=== PATIENT | female | born 1965 | race African-American/Black ===

== ENCOUNTER 2020-06-15 11:40 | Inpatient (IN) | payer OTHER, SELFPAY ==
[2020-06-15] MEDS ORDERED: Aspirin Chewable 81 MG TAB ONE (12:09)
[2020-06-15] MEDS ORDERED: Diltiazem 125 MG/25 ML ONE (12:09)
[2020-06-15 12:15] LABS: Mean Corpuscular HGB CONC 27.5 g/dL (32.0-36.0); Mean Corpuscular Hemoglobin 17.4 pg (27.0-31.0); Mean Corpuscular Volume 63.3 fL (78.0-98.0); Mean Platelet Volume 9.8 fL (7.4-10.4); Platelet Count 266 thou/uL (130-400); RBC Distribution Width 25.6 % (11.5-14.5); White Blood Cell (WBC) Count 10.1 thou/uL (4.8-10.8)
--- NOTE | 2020-06-15 12:17 | RAD ---
Chest one view HISTORY: Edema. Dyspnea. FINDINGS: No comparison. Cardiac silhouette is magnified and enlarged. Pulmonary vasculature are unre markable. Mediastinum is midline. There is blunting of the right lateral costophrenic angle and ill-defined predominantly horizontal pa renchymal opacity at the right lung base. Left lung is well-inflated. Calcified lymph nodes at the right hilum and calcified granulomata are co nsistent with healed granulomatous disease. No evidence of pneumothorax. IMPRESSION : Right basilar atelectasis and small amount of right pleural fluid. Cause is not evident. Clinical cor relation regarding other signs and symptoms of right basilar pneumonitis is required. Cardiomegaly.
[2020-06-15 12:37] LABS: ALT (SGPT) 313 U/L (8-55); AST (SGOT) 290 U/L (5-34); Albumin 3.3 g/dL (3.5-5.0); Alkaline Phosphatase 159 U/L (40-110); Anion Gap 18 mmol/L (10-20); BUN (Urea Nitrogen) 45 mg/dL (9.8-20.1); Bilirubin, Total 1.8 mg/dL (0.2-1.2); Calc. Creatinine Clearance 0 mL/min (70-130); Calcium 8.1 mg/dL (7.8-10.44); Carbon Dioxide 22 mmol/L (22-29); Chloride 104 mmol/L (98-107); Estimated GFR-MDRD 52; Glucose 157 mg/dL (70-105); Potassium 3.4 mmol/L (3.5-5.1); Protein, Total 6.3 g/dL (6.0-8.3); Sodium 141 mmol/L (136-145)
[2020-06-15 12:41] LABS: Anisocytosis MODERATE=16-30 cells (100X) (0-5/hpf); Band 3 % (5-11); Elliptocytes SLIGHT = 2-5 cells (100X) (0-1/hpf); Hypochromia MARKED = >30 cells (100X) (0-5/hpf); Lymphocytes 7 % (21-51); MDiff Complete? YES; Microcytosis MODERATE=15-30 cells (100X) (0-5/hpf); Monocytes 2 % (0-10); Neutrophil 88 % (42-75); Nucleated RBC 4 % (0); Ovalocytes SLIGHT = 2-5 cells (100X) (0-1/hpf); Platelet Morphology Comment Appears Adequate; Polychromasia SLIGHT = 2-3 cells (100X) (0-2/hpf); Reflex for Review?? YES; Schistocytes SLIGHT = 2-5 cells (100X) (0-1/hpf); Target Cells SLIGHT = 2-5 cells (100X) (0-1/hpf)
[2020-06-15] MEDS ORDERED: Enoxaparin Sodium 80 MG/0.8 ML SYRINGE ONE (12:43)
[2020-06-15 12:56] LABS: CKMB 4.9 ng/mL (0-6.6)
--- NOTE | 2020-06-15 13:11 | ULT ---
EXAM: Bilateral lower extremity venous duplex ultrasound with color and spectral Doppler imaging: HISTORY: Pain, swelling, edema COMPARISON: None FINDINGS: Exam performed from the groin to the ankle including the visualized greater saphenous, common femoral , superficial femoral, profunda femoral, popliteal, trifurcation, and posterior tibial veins. There is phasic flow with normal compressibility and normal augmentation at all examined levels. No evidence for intraluminal thrombus. IMPRESSION: No evidence for deep venous thrombosis.
[2020-06-15 16:18] LABS: Troponin I 0.095 ng/mL (< 0.028)
[2020-06-15] MEDS ORDERED: Benzonatate 100 MG CAP PO PRN (18:12)
[2020-06-15] MEDS ORDERED: Ondansetron PF 4 MG/2 ML Vial IVP PRN (18:12)
[2020-06-15] MEDS ORDERED: Ondansetron ODT 4 MG TAB PO PRN (18:12)
[2020-06-15] MEDS ORDERED: Labetalol HCl 100 MG/20 ML VIAL SLOW IVP PRN (18:12)
[2020-06-15] MEDS ORDERED: Acetaminophen 500 MG TAB PO PRN (18:12)
[2020-06-15] MEDS ORDERED: Diltiazem 125 MG in Sodium Chloride 0.9% 100 ML IVPB SCH (18:15)
[2020-06-15] MEDS ORDERED: Furosemide 40 MG/4 ML VIAL SLOW IVP SCH (18:30)
[2020-06-15 19:26] LABS: Troponin I 0.094 ng/mL (< 0.028)
[2020-06-15] MEDS: Famotidine 20 MG TAB PO SCH (22:27)
[2020-06-15] MEDS: Enoxaparin Sodium 80 MG/0.8 ML SYRINGE SC SCH (22:28)
--- NOTE | 2020-06-16 00:01 | HP ---
PRIMARY CARE PROVIDER: Angeli Eaton MD. CHIEF COMPLAINT: Shortness of breath. HISTORY OF PRESENT ILLNESS: This is a 54-year-old female, who presented to [facility] Emergency Department complaining of approximately 1-week history of persistent and progressive shortness of breath with associated left lower extremity swelling over the last 2 weeks. The patient denies productive sputum, but does states she quit smoking in the last 1-2 weeks. The patient states decreased energy level and difficulty performing her work tasks due to the swelling of her legs and shortness of breath. The patient noted worsening short of breath while lying down or on her back and needed to sit up to catch her breath. The patient also admits to some palpitations, but no specific chest pain, left arm discomfort or jaw pain. The patient denies any prior history of similar symptoms and states she was previously treated for hypertension, but has been off medications for many months. 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 In the emergency room, the patient underwent general evaluation including chest imaging showing mild infiltrate in the right mid lung zone. BNP was elevated and the patient was noted in atrial fibrillation with rapid ventricular response on EKG with heart rates in the 130s. The patient received diltiazem IV push in addition to an infusion as well as receiving Lovenox 1 mg/kg subcutaneously. The patient was transferred to the telemetry unit for further evaluation. PAST MEDICAL HISTORY: 1. Hypertension, not currently treated. 2. Tobacco abuse. 3. Alcohol use, none currently. PAST SURGICAL HISTORY: Reviewed and negative. CURRENT MEDICATIONS: Reviewed and negative. ALLERGIES: NO KNOWN DRUG ALLERGIES. FAMILY HISTORY: Positive for hypertension. SOCIAL HISTORY: Resides in [place], [place]. and cares for her handicapped . Smoked up to 1-2 packs daily, over 50 pack years. Prior alcohol use, none currently in the last to 1-2 weeks. No illicit drug use. Functional of all activities of daily living. REVIEW OF SYSTEMS: CONSTITUTIONAL: Negative for weight loss or gain, ability to conduct usual activities. SKIN: Negative for rash, itching. EYES: Negative for double vision, pain. ENT/MOUTH: Negative for nose bleeding, neck stiffness, pain, tenderness. CARDIOVASCULAR: Negative for palpitations, dyspnea on exertion, orthopnea. RESPIRATORY: Negative for shortness of breath, wheezing, cough, hemoptysis, fever or night sweats. GASTROINTESTINAL: Negative for poor appetite, abdominal pain, heartburn, nausea, vomiting, constipation, or diarrhea. GENITOURINARY: Negative for urgency, frequency, dysuria, nocturia. MUSCULOSKELETAL: Negative for pain, swelling. NEUROLOGIC/PSYCHIATRIC: Negative for anxiety, depression. ALLERGY/IMMUNOLOGIC: Negative for skin rash, bleeding tendency. Otherwise negative except as stated per HPI. PHYSICAL EXAMINATION: VITAL SIGNS: On admission, blood pressure 148/119, pulse 147, respiratory rate 19, temperature 98 degrees Fahrenheit, O2 saturation 96% on room air. GENERAL APPEARANCE: This is a 54-year-old female, alert and oriented x3, pleasant, responsive, in no acute distress. HEENT: Pupils are equal, round, reactive to light and accommodation. Extraocular muscles are intact. Mild scleral icterus. No conjunctival injection. Nares patent. OP is clear. Teeth in poor repair. NECK: Supple. No cervical adenopathy. No thyromegaly. No carotid bruits. No JVD appreciated. Cervical spine with full active and passive range of motion. No meningeal signs noted. CHEST: Diminished breath sounds in the bases bilaterally with occasional prolonged expiratory phase. CARDIOVASCULAR EXAM: S1-S2 with irregular rate and rhythm, tachycardic. No murmur, rub, or gallop appreciated. ABDOMEN: Rounded, soft, nontender, and nondistended. Bowel sounds are positive in all 4 quadrants. No palpable mass. No rebound or guarding. EXTREMITIES: Pitting edema to the knees bilaterally. Pulses palpable distally at the dorsalis pedis, posterior tibial, and popliteal arteries bilaterally. Capillary refill less than 2 seconds. NEUROLOGIC: Cranial nerves 2 through 12 are grossly intact. No focal or lateralizing signs appreciated. PERTINENT LABORATORY AND X-RAY FINDINGS: Sodium 141, potassium 3.4, chloride 104, CO2 of 22, BUN 45, creatinine 1.28, estimated GFR 52, glucose 157, calcium 8.1, total bilirubin 1.8, AST 290, ALT of 313, alkaline phosphatase 159, troponin I ranged between 0.095 to 0.103. BNP 1333. CBC showed a white blood cell count of 10.1, hemoglobin 8, hematocrit 29, MCV 63, platelet count 266 with 88% neutrophilia. IMAGIN. Portable chest x-ray dated 06/15/2020, showed right basilar atelectasis with right pleural fluid, cardiomegaly. 2. Bilateral venous Doppler study dated 06/15/2020, showed no evidence for DVT. 3. EKG dated 06/15/2020, by my interpretation shows atrial fibrillation with rapid ventricular response, heart rates in the 130s. Attenuated R-waves noted in the precordial leads, left axis deviation. ASSESSMENT AND PLAN: 1. New onset atrial fibrillation with rapid ventricular response. The patient will be admitted to the telemetry unit. We will continue Cardizem infusion at 5 mg/hour. Add metoprolol 25 mg p.o. b.i.d. Check 2D transthoracic echocardiogram in the a.m. Check magnesium and TSH level. Consult Cardiology Service for any further recommendations. 2. Acute congestive heart failure exacerbation. Suspect secondarily to #1. Continue Lasix 40 mg IV b.i.d. Serial In's and Out's and daily weights. 2D transthoracic echocardiogram, pending. Aspirin 81 mg daily. 3. Type 2 non-ST elevation myocardial infarction. Suspect demand ischemia in the context of #1 and #2. Continue aspirin 81 mg daily. Lovenox 80 mg subcutaneously q.12 hours. 4. Acute kidney injury. Suspect underlying chronic kidney disease, however, no previous values for comparison. Avoid nephrotoxic agents and limit contrast exposure. Repeat creatinine in the a.m. 5. Transaminitis. Suspect secondary to volume overload with hepatic congestion due to heart failure. Repeat liver function tests and monitor trend. 6. Microcytic anemia. Check serum iron studies, ferritin and reticulocyte count. Check stool Hemoccult. Repeat CBC in the a.m. 7. Tobacco abuse. Continue to encourage smoking cessation. Consider nicotine transdermal patch. 8. Prophylaxis. Sequential compression devices while in bed. Pepcid 20 mg p.o. b.i.d. CODE STATUS: Full. Surrogate medical decision maker is the patient's spouse. Job ID: [id number] MTDD
[2020-06-16 04:35] LABS: Reticulocyte Count 2.3 % (0.5-1.5)
[2020-06-16 05:12] LABS: Band 2 % (5-11); Elliptocytes SLIGHT = 2-5 cells (100X) (0-1/hpf); Hemoglobin 7.2 g/dL (12.0-16.0); Hypochromia MODERATE=16-30 cells (100X) (0-5/hpf); Large Platelets SLIGHT; Lymphocytes 2 % (21-51); MDiff Complete? YES; Mean Corpuscular HGB CONC 27.8 g/dL (32.0-36.0); Mean Corpuscular Hemoglobin 17.4 pg (27.0-31.0); Mean Corpuscular Volume 62.6 fL (78.0-98.0); Mean Platelet Volume 10.1 fL (7.4-10.4); Monocytes 4 % (0-10); Neutrophil 92 % (42-75); Nucleated RBC 3 % (0); Platelet Count 237 thou/uL (130-400); Platelet Morphology Comment Appears Adequate; RBC Distribution Width 24.4 % (11.5-14.5); Red Blood Cell (RBC) Count 4.13 mill/uL (4.20-5.40); Target Cells SLIGHT = 2-5 cells (100X) (0-1/hpf); White Blood Cell (WBC) Count 9.7 thou/uL (4.8-10.8)
[2020-06-16 05:34] LABS: ALT (SGPT) 259 U/L (8-55); AST (SGOT) 196 U/L (5-34); Albumin 2.9 g/dL (3.5-5.0); Alkaline Phosphatase 151 U/L (40-110); Anion Gap 11 mmol/L (10-20); BUN (Urea Nitrogen) 36 mg/dL (9.8-20.1); Bilirubin, Total 1.3 mg/dL (0.2-1.2); Calc. Creatinine Clearance 75 mL/min (70-130); Calcium 7.9 mg/dL (7.8-10.44); Carbon Dioxide 30 mmol/L (22-29); Chloride 102 mmol/L (98-107); Estimated GFR-MDRD 69; Globulin 2.9 g/dL (2.4-3.5); Glucose 134 mg/dL (70-105); Iron Less than 8 ug/dL (50-170); Magnesium 1.6 mg/dL (1.6-2.6); Protein, Total 5.8 g/dL (6.0-8.3); Sodium 140 mmol/L (136-145)
[2020-06-16 05:37] LABS: Potassium 2.8 mmol/L (3.5-5.1)
[2020-06-16] MEDS: Furosemide 40 MG/4 ML VIAL SLOW IVP SCH ×2 (05:46→14:15)
[2020-06-16 05:51] LABS: Thyroid Stimulating Hormone 1.7853 uIU/mL (0.35-4.94)
[2020-06-16] MEDS ORDERED: Potassium Chloride 40 MEQ in Sodium Chloride 0.9% 250 ML 250 ML IVPB SCH (06:30)
[2020-06-16 07:32] LABS: Ferritin 19.74 ng/mL (10-291)
[2020-06-16] MEDS: Aspirin 81 mg Enteric Coated Tablet PO SCH (09:54)
[2020-06-16] MEDS: Famotidine 20 MG TAB PO SCH ×2 (09:54→21:36)
[2020-06-16] MEDS: Enoxaparin Sodium 80 MG/0.8 ML SYRINGE SC SCH ×2 (09:54→21:36)
[2020-06-16 11:59] LABS: SARS-CoV-2 MS2 Positive; SARS-CoV-2 N Gene Negative; SARS-CoV-2 S Gene Negative; SARS-CoV-2 by NAA Not Detected (NotDetected); SARS-CoV-2 orf1ab Negative
--- NOTE | 2020-06-16 13:08 | CON ---
DATE OF CONSULTATION: 06/16/2020 INDICATION FOR CONSULTATION: A 54-year-old female with congestive heart failure, atrial fibrillation with rapid ventricular response. HISTORY OF PRESENT ILLNESS: This is a very unfortunate 54-year-old female who has a history of hypertension in the past, is not on any present medications, for the last several weeks has been noticing increasing shortness of breath, dyspnea on exertion as well as paroxysmal nocturnal dyspnea and lower extremity edema. She presented to the emergency room, she was found to have what appears to be a small right pleural effusion, also cardiomegaly on the chest x-ray. She was given IV diltiazem in the emergency room as she was also noted to have atrial fibrillation with rapid ventricular response, was given also Lovenox and aspirin in the emergency room. She was then admitted to the floor for further evaluation. She had an echocardiogram performed today which shows ejection fraction 25% to 30%. The left atrium is dilated as well as the right atrium. She has severe mitral and tricuspid valve regurgitation. The right ventricle appears to be mildly dilated and she does have dilatation and non-collapsibility of the inferior vena cava on inspiration compatible with volume overload. Her past medical history is positive for the hypertension, for which she is not taking any medications. Otherwise, she had no significant operations or illnesses. She denied any chest pain, mainly complains of shortness of breath. SOCIAL HISTORY: She is . She smokes 1 to 2 packs a day for 50 years. She drinks 2 beers a day. She said she stopped both of these a week or 2 ago. 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 FAMILY HISTORY: Positive for hypertension. MEDICATIONS: Prior to admission were none. In the emergency room, she was given: 1. Lovenox. 2. Diltiazem. 3. Aspirin. ALLERGIES: NONE. REVIEW OF SYSTEMS: 12-point review of systems is unremarkable except what is noted in the history of present illness. PHYSICAL EXAMINATION: GENERAL: Reveals a middle-aged female. VITAL SIGNS: Blood pressure 120/89, heart rate was 80 and irregular, respiratory rate 16, and she is afebrile. HEENT: Shows the head to be normocephalic and atraumatic. NECK: Carotid pulses are present. There are no bruits. CHEST: Shows decreased breath sounds bilaterally in the bases, but otherwise no significant rales, rhonchi, or wheezing were noted. She does have decreased breath sounds throughout. CARDIOVASCULAR: Reveals an irregularly irregular rhythm. She has systolic murmur at the apex, at least 2 to 3 over 6. There were no heaves or thrills noted. ABDOMEN: Soft and nontender. Positive bowel sounds are present. EXTREMITIES: Show 1 to 2+ lower extremity edema from the knees down to the feet. Pedal pulses are present. NEUROLOGIC: She appears to be fully intact. She has normal strength and normal tone. SKIN: Warm and dry at this time. DIAGNOSTIC STUDIES: Her EKG shows atrial fibrillation, the heart rate was 133 beats per minute. Telemetry shows she still remains in atrial fibrillation, but the rate is under better control with the heart rates in the 70s at this time. Her chest x-ray as noted above for cardiomegaly and small right pleural effusion. LABORATORY DATA: Shows a hemoglobin of 7.2, hematocrit is 25.9, WBC of 9.7, and platelet count of 237,000. The troponin I was 0.1, decreased down to 0.9. BNP was 1333, is decreased down to 1009. Potassium was actually 3.4, is now decreased down to 2.8. I believe she is being given replacement. Her BUN was 36 and creatinine 1.01. Blood sugar was 134. Sodium was 140. IMPRESSION AND PLAN: 1. Atrial fibrillation with rapid ventricular response, which is controlled at this time by IV diltiazem. 2. Cardiomyopathy, which may be due to tachycardia-induced cardiomyopathy from her atrial fibrillation or from some other etiology given her long history of tobacco abuse and history of hypertension. She may have underlying coronary artery disease. This will need to be further evaluated. These congestive heart failure symptoms are better controlled. 3. Anemia. We will need to sort out the etiology of the anemia. This may be some degree of dilution; however, hemoglobin was 7.2. She is not a candidate for any type of cardiac catheterization. 4. Hypokalemia. This will be replenished. 5. History of tobacco abuse and alcohol abuse. She will need an advice and some guidance as to stopping both of these habits. We will be more than happy to continue to follow the patient with you at this time. 6. She also has what appears to be a type 2 myocardial infarction with demand ischemia associated with the tachycardia and the atrial fibrillation. At this time, we will continue the diuretics. Her medications at this time since being in the hospital, she has been placed on the IV diltiazem, potassium replacement, she was given aspirin 81 mg a day. She has also been given Lovenox 80 mg b.i.d., we may decrease this dose since she does not appear to have a significant myocardial infarction, this most likely is just due to demand ischemia. We can certainly put her back on a renal dose or deep venous thrombosis prophylaxis for the Lovenox. She is on Lasix 40 mg as well as p.r.n. medications. The Lasix is 40 mg b.i.d. We will need to follow the potassium very carefully and replace as needed. Further care of the patient will depend on her progress as to her congestive heart failure. Most likely, she will need to undergo stress testing or cardiac catheterization. Most likely, she would better benefit from a cardiac catheterization once the congestive heart failure symptoms have resolved. Job ID: [id number]
[2020-06-16] MEDS ORDERED: Magnesium 2 GM/50 ML 2 GM in Premix Bag 1 BAG IVPB SCH (14:00)
--- NOTE | 2020-06-16 14:43 | PDOC.HOSPP ---
- Subjective Encounter Date: 06/16/20 Encounter Time: 14:40 Subjective: f/u for new-onset A-fib RVR and CHF on IV Lasix. - Objective Vital Signs & Weight: Vital Signs (12 hours) Temp Pulse Resp BP BP Pulse Ox 06/16/20 11:27 97.5 F L 93 16 145/96 H 96 06/16/20 07:36 97.7 F 80 16 120/89 98 06/16/20 04:00 97.5 F L 72 18 120/89 98 Weight Weight 164 lb I&O: 06/15/20 06/16/20 06/17/20 06:59 06:59 06:59 Intake Total 240 820 Output Total 690 2125 Balance -450 -1305 Result Diagrams: 06/16/20 04:07 06/16/20 04:08 Additional Labs: Laboratory Tests 06/15/20 06/15/20 06/15/20 12:04 12:04 12:04 Hgb 8.0 L Retic Count Immature Retic Fraction Potassium 3.4 L Iron Ferritin Total Bilirubin AST ALT Alkaline Phosphatase B-Natriuretic Peptide 1333.0 H TSH 3rd Generation SARS-CoV-2 (PCR) 06/15/20 06/16/20 06/16/20 16:28 04:07 04:07 Hgb Retic Count Immature Retic Fraction Potassium Iron Ferritin 19.74 Total Bilirubin AST ALT Alkaline Phosphatase B-Natriuretic Peptide 1009.5 H TSH 3rd Generation 1.7853 SARS-CoV-2 (PCR) Not Detected 06/16/20 06/16/20 04:07 04:08 Hgb Retic Count 2.3 H Immature Retic Fraction 0.521 H Potassium Iron Less than 8 L Ferritin Total Bilirubin 1.3 H AST 196 H ALT 259 H Alkaline Phosphatase 151 H B-Natriuretic Peptide TSH 3rd Generation SARS-CoV-2 (PCR) Radiology Reviewed by me: Yes (Echo - EF 25%, severe LAE, mod-sev MR/TR) EKG Reviewed by me: Yes (Tele - A-fib in 's) Hospitalist ROS - Medication Medications: Active Medications Generic Name Dose Route Start Last Admin Trade Name Freq PRN Reason Stop Dose Admin Aspirin 81 mg 06/16/20 09:00 06/16/20 09:54 Aspirin 81 Mg Enteric Coated Tablet PO 81 mg DAILY KENDALL Administration Enoxaparin Sodium 80 mg 06/15/20 21:00 06/16/20 09:54 Enoxaparin Sodium 80 Mg/0.8 Ml Syringe SC 80 mg 0900,2100 KENDALL Administration Famotidine 20 mg 06/15/20 21:00 06/16/20 09:54 Famotidine 20 Mg Tab PO 20 mg BID KENDALL Administration Furosemide 40 mg 06/16/20 06:00 06/16/20 14:15 Furosemide 40 Mg/4 Ml Vial SLOW IVP 40 mg 0600,1400 KENDALL Administration Diltiazem HCl 125 mg/ Sodium 125 mls @ 5 mls/hr 06/15/20 18:15 06/16/20 07:41 Chloride IVPB 125 mls INF KENDALL Administration Protocol 5 MG/HR Magnesium Sulfate 2 gm/ Device 50 mls @ 50 mls/hr 06/16/20 14:00 06/16/20 14:19 IVPB 06/16/20 16:00 50 mls NOW KENDALL Administration - Exam General Appearance: NAD, awake alert Eye: PERRL, anicteric sclera ENT: normocephalic atraumatic, no oropharyngeal lesions Neck: supple, symmetric, no JVD, no thyromegaly, no lymphadenopathy Heart: no gallops, no rubs, normal peripheral pulses, irregular Heart - other findings: S1, S2 Respiratory: CTAB, no wheezes, no tachypnea Respiratory - other findings: few basilar rales Gastrointestinal: soft, non-tender, non-distended, normal bowel sounds, no palpable masses Extremities: no cyanosis, no clubbing, 1+ LE edema Skin: normal turgor, no lesions Neurological: cranial nerve grossly intact, no new deficit Musculoskeletal: normal tone, normal strength Psychiatric: A&O x 3, flat affect Hosp A/P (1) Acute systolic CHF (congestive heart failure) Code(s): I50.21 - ACUTE SYSTOLIC (CONGESTIVE) HEART FAILURE Status: Acute Plan: EF 25%, continue Lasix 40mg IV BID, likely will need [facility] to further define coronary anatomy (2) Atrial fibrillation with RVR Code(s): I48.91 - UNSPECIFIED ATRIAL FIBRILLATION Status: Acute Plan: Continue rate-control strategy, start Coreg 6.25mg BID, wean off Diltiazem gtt (3) Hypokalemia Code(s): E87.6 - HYPOKALEMIA Status: Acute (4) Cardiomyopathy Code(s): I42.9 - CARDIOMYOPATHY, UNSPECIFIED Status: Acute (5) Type 2 myocardial infarction Code(s): I21.A1 - MYOCARDIAL INFARCTION TYPE 2 Status: Acute Plan: Continue med mgmt, Lovenox, likely will need LHC (6) KOBE (acute kidney injury) Code(s): N17.9 - ACUTE KIDNEY FAILURE, UNSPECIFIED Status: Acute Plan: Improved, avoid nephrotoxic meds and limit contrast exposure (7) Transaminitis Code(s): R74.01 - ELEVATION OF LEVELS OF LIVER TRANSAMINASE LEVELS Status: Acute Plan: Secondary to hepatic congestion from CHF (8) Tobacco abuse Code(s): Z72.0 - TOBACCO USE Status: Chronic Plan: Tobacco cessation resources (9) Iron deficiency anemia Code(s): D50.9 - IRON DEFICIENCY ANEMIA, UNSPECIFIED Status: Chronic Qualifiers: Iron deficiency anemia type: inadequate dietary iron intake Qualified Code(s): D50.8 - Other iron deficiency anemias Plan: IV Iron infusion 250mg today, serial 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
[2020-06-16] MEDS ORDERED: Potassium Chloride 20 MEQ TAB PO SCH (15:00)
[2020-06-16] MEDS ORDERED: Iron, Sodium Ferric Gluconate 250 MG in Sodium Chloride 0.9% 100 ML IVPB SCH (15:00)
[2020-06-16] MEDS: Potassium Chloride 20 MEQ TAB PO SCH (18:47)
[2020-06-16] MEDS: Carvedilol 6.25 MG TAB PO SCH (18:48)
[2020-06-17] MEDS: Furosemide 40 MG/4 ML VIAL SLOW IVP SCH ×2 (06:18→14:37)
[2020-06-17 06:45] LABS: Band 6 % (5-11); Hemoglobin 7.6 g/dL (12.0-16.0); Hypochromia SLIGHT = 6-15 cells (100X) (0-5/hpf); Lymphocytes 12 % (21-51); MDiff Complete? YES; Mean Corpuscular HGB CONC 27.2 g/dL (32.0-36.0); Mean Corpuscular Hemoglobin 17.4 pg (27.0-31.0); Mean Corpuscular Volume 63.9 fL (78.0-98.0); Mean Platelet Volume 10.4 fL (7.4-10.4); Microcytosis SLIGHT = 6-15 cells (100X) (0-5/hpf); Monocytes 4 % (0-10); Neutrophil 78 % (42-75); Nucleated RBC 5 % (0); Platelet Count 231 thou/uL (130-400); Platelet Morphology Comment Appears Adequate; RBC Distribution Width 25.4 % (11.5-14.5); Red Blood Cell (RBC) Count 4.34 mill/uL (4.20-5.40); White Blood Cell (WBC) Count 8.4 thou/uL (4.8-10.8)
[2020-06-17 07:29] LABS: ALT (SGPT) 204 U/L (8-55); AST (SGOT) 131 U/L (5-34); Albumin 2.7 g/dL (3.5-5.0); Alkaline Phosphatase 130 U/L (40-110); Anion Gap 12 mmol/L (10-20); BUN (Urea Nitrogen) 24 mg/dL (9.8-20.1); Bilirubin, Total 1.1 mg/dL (0.2-1.2); Calc. Creatinine Clearance 85 mL/min (70-130); Calcium 7.4 mg/dL (7.8-10.44); Carbon Dioxide 29 mmol/L (22-29); Chloride 98 mmol/L (98-107); Estimated GFR-MDRD 81; Glucose 91 mg/dL (70-105); Potassium 3.4 mmol/L (3.5-5.1); Protein, Total 5.7 g/dL (6.0-8.3); Sodium 136 mmol/L (136-145)
[2020-06-17] MEDS: Enoxaparin Sodium 80 MG/0.8 ML SYRINGE SC SCH ×2 (10:01→23:48)
[2020-06-17] MEDS: Famotidine 20 MG TAB PO SCH ×2 (10:02→23:48)
[2020-06-17] MEDS: Carvedilol 6.25 MG TAB PO SCH ×2 (10:02→17:45)
[2020-06-17] MEDS: Aspirin 81 mg Enteric Coated Tablet PO SCH (10:02)
[2020-06-17] MEDS: Potassium Chloride 20 MEQ TAB PO SCH ×2 (10:02→17:45)
--- NOTE | 2020-06-17 12:29 | PDOC.HOSPP ---
- Subjective Encounter Date: 06/17/20 Encounter Time: 12:25 Subjective: f/u for CHF and new-onset A-fib on current Cardizem gtt. Feels better overall. Received IV Iron infusion 06/16/20. - Objective Vital Signs & Weight: Vital Signs (12 hours) Temp Pulse Resp BP BP BP Pulse Ox 06/17/20 12:00 98.2 F 91 16 100/79 98 06/17/20 10:02 129/84 06/17/20 08:00 98.5 F 74 18 123/87 95 06/17/20 04:20 97.6 F 67 18 122/82 100 Weight Weight 157 lb 6.4 oz I&O: 06/16/20 06/17/20 06/18/20 06:59 06:59 06:59 Intake Total 240 1900 660 Output Total 690 5817 2150 Balance -401 -5205 -7260 Result Diagrams: 06/17/20 03:30 06/17/20 04:40 Additional Labs: Laboratory Tests 06/15/20 06/15/20 06/15/20 12:04 12:04 12:04 Hgb 8.0 L Retic Count Immature Retic Fraction Potassium 3.4 L Iron Ferritin Total Bilirubin AST ALT Alkaline Phosphatase B-Natriuretic Peptide 1333.0 H TSH 3rd Generation SARS-CoV-2 (PCR) 06/15/20 06/16/20 06/16/20 16:28 04:07 04:07 Hgb Retic Count Immature Retic Fraction Potassium Iron Ferritin 19.74 Total Bilirubin AST ALT Alkaline Phosphatase B-Natriuretic Peptide 1009.5 H TSH 3rd Generation 1.7853 SARS-CoV-2 (PCR) Not Detected 06/16/20 06/16/20 04:07 04:08 Hgb Retic Count 2.3 H Immature Retic Fraction 0.521 H Potassium Iron Less than 8 L Ferritin Total Bilirubin 1.3 H AST 196 H ALT 259 H Alkaline Phosphatase 151 H B-Natriuretic Peptide TSH 3rd Generation SARS-CoV-2 (PCR) EKG Reviewed by me: Yes (Tele - A-fib in 80's) Hospitalist ROS - Medication Medications: Active Medications Generic Name Dose Route Start Last Admin Trade Name Freq PRN Reason Stop Dose Admin Aspirin 81 mg 06/16/20 09:00 06/17/20 10:02 Aspirin 81 Mg Enteric Coated Tablet PO 81 mg DAILY KENDALL Administration Carvedilol 6.25 mg 06/16/20 17:00 06/17/20 10:02 Carvedilol 6.25 Mg Tab PO 6.25 mg BID-WM KENDALL Administration Enoxaparin Sodium 80 mg 06/15/20 21:00 06/17/20 10:01 Enoxaparin Sodium 80 Mg/0.8 Ml Syringe SC 80 mg 0900,2100 KENDALL Administration Famotidine 20 mg 06/15/20 21:00 06/17/20 10:02 Famotidine 20 Mg Tab PO 20 mg BID KENDALL Administration Furosemide 40 mg 06/16/20 06:00 06/17/20 06:18 Furosemide 40 Mg/4 Ml Vial SLOW IVP Not Given 0600,1400 KENDALL Diltiazem HCl 125 mg/ Sodium 125 mls @ 5 mls/hr 06/15/20 18:15 06/16/20 07:41 Chloride IVPB 125 mls INF KENDALL Administration Protocol 5 MG/HR Potassium Chloride 40 meq 06/16/20 17:00 06/17/20 10:02 Potassium Chloride 20 Meq Tab PO 40 meq BID-WM KENDALL Administration - Exam General Appearance: NAD, awake alert Eye: PERRL, anicteric sclera ENT: normocephalic atraumatic, no oropharyngeal lesions Neck: supple, symmetric, no JVD, no thyromegaly, no lymphadenopathy Heart: no gallops, no rubs, normal peripheral pulses, irregular Heart - other findings: S1, S2 Respiratory: CTAB, no wheezes, no rales, no ronchi, normal chest expansion Gastrointestinal: soft, non-tender, non-distended, normal bowel sounds, no palpable masses Extremities: no cyanosis, no clubbing Extremities - other findings: minimal LE edema Skin: normal turgor, no lesions Neurological: cranial nerve grossly intact, no new deficit Musculoskeletal: normal tone, generalized weakness Psychiatric: normal affect, A&O x 3 Hosp A/P (1) Acute systolic CHF (congestive heart failure) Code(s): I50.21 - ACUTE SYSTOLIC (CONGESTIVE) HEART FAILURE Status: Acute Plan: Continue Lasix IV, serial I/O's, daily weight, may need heart cath to delineate coronary anatomy (2) Atrial fibrillation with RVR Code(s): I48.91 - UNSPECIFIED ATRIAL FIBRILLATION Status: Acute Plan: Rate improved, d/c Cardizem gtt, continue Coreg, Lovenox 80mg sc BID (3) Hypokalemia Code(s): E87.6 - HYPOKALEMIA Status: Acute Plan: KCL supplementation, serial K+ monitoring (4) Cardiomyopathy Code(s): I42.9 - CARDIOMYOPATHY, UNSPECIFIED Status: Chronic Plan: Likely ischemic, continue med mgmt currently, heart cath when CHF stablizing (5) Type 2 myocardial infarction Code(s): I21.A1 - MYOCARDIAL INFARCTION TYPE 2 Status: Acute (6) KOBE (acute kidney injury) Code(s): N17.9 - ACUTE KIDNEY FAILURE, UNSPECIFIED Status: Acute Plan: Resolving, avoid nephrotoxic meds and limit contrast (7) Transaminitis Code(s): R74.01 - ELEVATION OF LEVELS OF LIVER TRANSAMINASE LEVELS Status: Acute (8) Tobacco abuse Code(s): Z72.0 - TOBACCO USE Status: Chronic (9) Iron deficiency anemia Code(s): D50.9 - IRON DEFICIENCY ANEMIA, UNSPECIFIED Status: Chronic Qualifiers: Iron deficiency anemia type: inadequate dietary iron intake Qualified Code(s): D50.8 - Other iron deficiency anemias Plan: s/p IV Iron infusion, start FeSO4 325mg BID - Plan Stable currently Continue Lasix 40mg IV BID Start Coreg 6.25mg BID D/C Cardizem gtt Continue Lovenox 80mg sc q12h Start FeSO4 325mg BID LHC likely prior to d/c AM lab: CMP, H/H
[2020-06-17] MEDS: Ferrous Sulfate 325 MG TAB PO SCH (17:45)
[2020-06-18 05:25] LABS: Anion Gap 11 mmol/L (10-20); BUN (Urea Nitrogen) 22 mg/dL (9.8-20.1); Calc. Creatinine Clearance 86 mL/min (70-130); Calcium 7.4 mg/dL (7.8-10.44); Carbon Dioxide 33 mmol/L (22-29); Chloride 96 mmol/L (98-107); Estimated GFR-MDRD 87; Glucose 89 mg/dL (70-105); Potassium 3.6 mmol/L (3.5-5.1); Sodium 136 mmol/L (136-145)
[2020-06-18 05:27] LABS: Hemoglobin 7.4 g/dL (12.0-16.0); Platelet Count 199 thou/uL (130-400)
[2020-06-18] MEDS: Furosemide 40 MG/4 ML VIAL SLOW IVP SCH (06:16)
[2020-06-18] MEDS ORDERED: Digoxin 0.5 MG/2 ML AMP SLOW IVP SCH ×2 (07:45→11:00)
[2020-06-18] MEDS: Carvedilol 6.25 MG TAB PO SCH ×2 (08:02→17:41)
[2020-06-18] MEDS: Aspirin 81 mg Enteric Coated Tablet PO SCH (08:02)
[2020-06-18] MEDS: Potassium Chloride 20 MEQ TAB PO SCH ×2 (08:02→17:40)
[2020-06-18] MEDS: Ferrous Sulfate 325 MG TAB PO SCH ×2 (08:02→17:41)
[2020-06-18] MEDS: Enoxaparin Sodium 80 MG/0.8 ML SYRINGE SC SCH ×2 (08:02→22:14)
[2020-06-18] MEDS: Famotidine 20 MG TAB PO SCH ×2 (08:02→22:18)
--- NOTE | 2020-06-18 10:53 | PDOC.HOSPP ---
- Subjective Encounter Date: 06/18/20 Encounter Time: 10:40 Subjective: f/u for CHF/A-fib and anemia. Nursing reports recurrent A-fib RVR receiving Digoxin x 2 doses. Pt reports palpitations but no CP. Weight down 169lb to 152lbs. - Objective Vital Signs & Weight: Vital Signs (12 hours) Temp Pulse Resp BP BP Pulse Ox 06/18/20 08:06 110 H 06/18/20 07:43 98.3 F 79 18 135/93 H 100 06/18/20 04:41 97.9 F 98 18 132/101 H 95 06/18/20 01:11 98 06/18/20 00:44 98.0 F 82 18 100/76 98 Weight Weight 152 lb 3.2 oz I&O: 06/17/20 06/18/20 06/19/20 06:59 06:59 06:59 Intake Total 1900 1200 Output Total 5872 3500 Balance -0825 -1920 Result Diagrams: 06/18/20 04:33 06/18/20 04:33 Additional Labs: Laboratory Tests 06/15/20 06/15/20 06/15/20 12:04 12:04 12:04 Hgb 8.0 L Retic Count Immature Retic Fraction Potassium 3.4 L Iron Ferritin Total Bilirubin AST ALT Alkaline Phosphatase B-Natriuretic Peptide 1333.0 H TSH 3rd Generation SARS-CoV-2 (PCR) 06/15/20 06/16/20 06/16/20 16:28 04:07 04:07 Hgb Retic Count Immature Retic Fraction Potassium Iron Ferritin 19.74 Total Bilirubin AST ALT Alkaline Phosphatase B-Natriuretic Peptide 1009.5 H TSH 3rd Generation 1.7853 SARS-CoV-2 (PCR) Not Detected 06/16/20 06/16/20 04:07 04:08 Hgb Retic Count 2.3 H Immature Retic Fraction 0.521 H Potassium Iron Less than 8 L Ferritin Total Bilirubin 1.3 H AST 196 H ALT 259 H Alkaline Phosphatase 151 H B-Natriuretic Peptide TSH 3rd Generation SARS-CoV-2 (PCR) EKG Reviewed by me: Yes (Tele - A-fib in 110's) Hospitalist ROS - Medication Medications: Active Medications Generic Name Dose Route Start Last Admin Trade Name Freq PRN Reason Stop Dose Admin Aspirin 81 mg 06/16/20 09:00 06/18/20 08:02 Aspirin 81 Mg Enteric Coated Tablet PO 81 mg DAILY KENDALL Administration Benzonatate 100 mg 06/15/20 18:12 06/17/20 14:50 Benzonatate 100 Mg Cap PO 100 mg Q6H PRN Administration Cough Enoxaparin Sodium 80 mg 06/15/20 21:00 06/18/20 08:02 Enoxaparin Sodium 80 Mg/0.8 Ml Syringe SC 80 mg 0900,2100 K[facility]ALL Administration Famotidine 20 mg 06/15/20 21:00 06/18/20 08:02 Famotidine 20 Mg Tab PO 20 mg BID KENDALL Administration Ferrous Sulfate 325 mg 06/17/20 17:00 06/18/20 08:02 Ferrous Sulfate 325 Mg Tab PO 325 mg BID-WM KENDALL Administration Potassium Chloride 40 meq 06/16/20 17:00 06/18/20 08:02 Potassium Chloride 20 Meq Tab PO 40 meq BID-WM K[facility]ALL Administration Sodium Chloride 10 ml 06/18/20 09:00 06/18/20 08:06 Flush - Normal Saline 10 Ml Syringe IVF 10 ml Q12HR KENDALL Administration - Exam General Appearance: NAD, awake alert Eye: PERRL, anicteric sclera ENT: normocephalic atraumatic, no oropharyngeal lesions Neck: supple, symmetric, no JVD, no thyromegaly, no lymphadenopathy Heart: no gallops, no rubs, normal peripheral pulses, irregular Heart - other findings: S1, S2 tachycardic Respiratory: CTAB, no wheezes, no rales, no ronchi, normal chest expansion Gastrointestinal: soft, non-tender, non-distended, normal bowel sounds, no palpable masses Extremities: no cyanosis, no clubbing, no edema Skin: normal turgor, no lesions Neurological: cranial nerve grossly intact, no new deficit Musculoskeletal: normal tone, normal strength Psychiatric: normal affect, A&O x 3 Hosp A/P (1) Acute systolic CHF (congestive heart failure) Code(s): I50.21 - ACUTE SYSTOLIC (CONGESTIVE) HEART FAILURE Status: Acute Plan: EF 25-30%, continue med mgmt, will need heart cath when stabilizing, Lasix 40mg IV daily (2) Atrial fibrillation with RVR Code(s): I48.91 - UNSPECIFIED ATRIAL FIBRILLATION Status: Acute Plan: Recurrent RVR, increase Coreg 12.5mg BID, Digoxin IV x 2 doses today (3) Hypokalemia Code(s): E87.6 - HYPOKALEMIA Status: Acute Plan: Resolved, serial K+ monitoring (4) Cardiomyopathy Code(s): I42.9 - CARDIOMYOPATHY, UNSPECIFIED Status: Chronic (5) Type 2 myocardial infarction Code(s): I21.A1 - MYOCARDIAL INFARCTION TYPE 2 Status: Acute (6) KOBE (acute kidney injury) Code(s): N17.9 - ACUTE KIDNEY FAILURE, UNSPECIFIED Status: Acute Plan: Resolving (7) Transaminitis Code(s): R74.01 - ELEVATION OF LEVELS OF LIVER TRANSAMINASE LEVELS Status: Acute (8) Tobacco abuse Code(s): Z72.0 - TOBACCO USE Status: Chronic (9) Iron deficiency anemia Code(s): D50.9 - IRON DEFICIENCY ANEMIA, UNSPECIFIED Status: Chronic Qualifiers: Iron deficiency anemia type: inadequate dietary iron intake Qualified Code(s): D50.8 - Other iron deficiency anemias Plan: s/p Iron infusion, continue FeSO4 325mg BID, transfuse 1u PRBC's today - Plan Stable currently Continue Lasix 40mg IV daily Start Coreg 12.5mg BID D/C Cardizem gtt Continue Lovenox 80mg sc q12h Start FeSO4 325mg BID Transfuse 1u PRBC's today Heart cath prior to d/c? AM lab: CMP, H/H
[2020-06-18] MEDS ORDERED: Carvedilol 6.25 MG TAB PO SCH (11:00)
--- NOTE | 2020-06-18 19:18 | PDOC.CPN ---
- Subjective Date: 06/18/20 Time: 16:00 - Review of Systems General: denies: fever/chills, weight/appetite/sleep changes, night sweats, fatigue Respiratory: denies: cough, congestion, shortness of breath, exercise intolerance Cardiovascular: denies: chest pain, palpitation, edema, paroxysmal nocturnal dyspnea, orthopnea Gastrointestinal: denies: nausea, vomiting, diarrhea, constipation, abd pain, GI bleeding Musculoskeletal: reports: swelling Neurological: denies: numbness, syncope, seizure, weakness - Objective Allergies/Adverse Reactions: Allergies Allergy/AdvReac Type Severity Reaction Status Date / Time No Known Allergies Allergy Verified 06/15/20 17:29 Visit Medications: Current Medications Acetaminophen (Acetaminophen 500 Mg Tab) 1,000 mg PO Q6H PRN PRN Reason: Mild Pain (1-3) Aspirin (Aspirin 81 Mg Enteric Coated Tablet) 81 mg PO DAILY [facility] Last Admin: 06/18/20 08:02 Dose: 81 mg Documented by: Benzonatate (Benzonatate 100 Mg Cap) 100 mg PO Q6H PRN PRN Reason: Cough Last Admin: 06/17/20 14:50 Dose: 100 mg Documented by: Carvedilol (Carvedilol 6.25 Mg Tab) 12.5 mg PO BID-[facility] Last Admin: 06/18/20 17:41 Dose: 12.5 mg Documented by: Enoxaparin Sodium (Enoxaparin Sodium 80 Mg/0.8 Ml Syringe) 80 mg SC 0900,2100 [facility] Last Admin: 06/18/20 08:02 Dose: 80 mg Documented by: Famotidine (Famotidine 20 Mg Tab) 20 mg PO BID [facility] Last Admin: 06/18/20 08:02 Dose: 20 mg Documented by: Ferrous Sulfate (Ferrous Sulfate 325 Mg Tab) 325 mg PO BID-[facility] Last Admin: 06/18/20 17:41 Dose: 325 mg Documented by: Furosemide (Furosemide 40 Mg/4 Ml Vial) 40 mg SLOW IVP DAILY [facility] Labetalol HCl (Labetalol Hcl 100 Mg/20 Ml Vial) 20 mg SLOW IVP Q4H PRN PRN Reason: SBP > 180 and HR >/= 70 Ondansetron HCl (Ondansetron Odt 4 Mg Tab) 4 mg PO Q6H PRN PRN Reason: Nausea/Vomiting Ondansetron HCl (Ondansetron Pf 4 Mg/2 Ml Vial) 4 mg IVP Q6H PRN PRN Reason: Nausea/Vomiting Potassium Chloride (Potassium Chloride 20 Meq Tab) 40 meq PO BID-WM [facility] Last Admin: 06/18/20 17:40 Dose: 40 meq Documented by: Sodium Chloride (Flush - Normal Saline 10 Ml Syringe) 10 ml IVF Q12HR [facility] Last Admin: 06/18/20 08:06 Dose: 10 ml Documented by: Sodium Chloride (Flush - Normal Saline 10 Ml Syringe) 10 ml IVF PRN PRN PRN Reason: Saline Flush Vital Signs & Weight: Vital Signs Temp Pulse Pulse Resp BP BP BP 06/18/20 15:35 98 F 91 16 133/77 06/18/20 13:01 97.9 F 91 18 114/83 06/18/20 12:40 98.2 F 95 18 132/83 06/18/20 12:00 98.4 F 100 16 133/89 06/18/20 11:28 115 H 06/18/20 11:27 105/86 06/18/20 08:06 110 H 06/18/20 07:43 98.3 F 79 18 135/93 H Pulse Ox 06/18/20 15:35 99 06/18/20 13:01 98 06/18/20 12:40 97 06/18/20 12:00 99 06/18/20 11:28 06/18/20 11:27 06/18/20 08:06 06/18/20 07:43 100 Weight 152 lb 3.2 oz - Quality Measures CV meds: Beta Akhil: Yes - Physical Exam HEENT: normocephaly Neck: no JVD/HJR Cardiac: irregularly regular, systolic murmur Lungs: clear to auscultation Neuro: grossly intact Abdomen: unremarkable Extremities: 1+ LE edema Musculoskeletal: normal range of motion - Labs Result Diagrams: 06/18/20 04:33 06/18/20 04:33 Troponin/CKMB CK-MB (CK-2) 4.9 ng/mL (0-6.6) 06/15/20 12:04 Troponin I 0.094 ng/mL (< 0.028) H 06/15/20 18:51 - Telemetry Supraventricular conduction: atrial fibrillation - Assessment/Plan Assessment/Plan: 1. CMY, CHF. EF 25-30%. Will need Life-Vest on d/c. Will need cardiac cath prior to d/c to r/o CAD . Pt. has risk factors for CAD. 2. Atrial fibrillation with RVR. The rate is still elevated at time. Continue betablockers. Will need OAC on d/c. 3. Hypokalemia. Stable with replacements. 4. KOBE. Elevated LFT's. Due likely to hepatic engorgement. 5. Tobacco abuse. 6. Iron def. anemia. Received transfusion today. Will need further investigation prior to any possible coronary intervention.
[2020-06-18] MEDS ORDERED: Electrolyte Replacement Protoc 1 EACH EACH FS SCH (21:15)
[2020-06-18 21:42] LABS: Phosphorus 2.3 mg/dL (2.3-4.7)
[2020-06-18 21:44] LABS: Magnesium 1.3 mg/dL (1.6-2.6); Potassium 3.9 mmol/L (3.5-5.1)
[2020-06-18] MEDS ORDERED: Magnesium Sulfate 4 GM in Sodium Chloride 0.9% 250 ML 250 ML IVPB SCH (22:30)
[2020-06-19 04:56] LABS: Hemoglobin 8.6 g/dL (12.0-16.0); Platelet Count 218 thou/uL (130-400)
[2020-06-19 05:40] LABS: ALT (SGPT) 133 U/L (8-55); AST (SGOT) 67 U/L (5-34); Albumin 2.8 g/dL (3.5-5.0); Alkaline Phosphatase 119 U/L (40-110); Anion Gap 11 mmol/L (10-20); BUN (Urea Nitrogen) 21 mg/dL (9.8-20.1); Calc. Creatinine Clearance 81 mL/min (70-130); Calcium 7.4 mg/dL (7.8-10.44); Carbon Dioxide 30 mmol/L (22-29); Chloride 99 mmol/L (98-107); Estimated GFR-MDRD 84; Globulin 2.9 g/dL (2.4-3.5); Glucose 104 mg/dL (70-105); Magnesium 2.4 mg/dL (1.6-2.6); Protein, Total 5.7 g/dL (6.0-8.3); Sodium 136 mmol/L (136-145)
[2020-06-19] MEDS: Enoxaparin Sodium 80 MG/0.8 ML SYRINGE SC SCH ×2 (08:12→21:06)
[2020-06-19] MEDS: Potassium Chloride 20 MEQ TAB PO SCH ×2 (08:12→17:08)
[2020-06-19] MEDS: Aspirin 81 mg Enteric Coated Tablet PO SCH (08:13)
[2020-06-19] MEDS: Ferrous Sulfate 325 MG TAB PO SCH ×2 (08:13→17:08)
[2020-06-19] MEDS: Carvedilol 6.25 MG TAB PO SCH ×2 (08:13→17:08)
[2020-06-19] MEDS: Famotidine 20 MG TAB PO SCH ×2 (08:13→21:06)
[2020-06-19] MEDS ORDERED: Furosemide 40 MG/4 ML VIAL SLOW IVP SCH (09:00)
[2020-06-19] MEDS: Iron, Sodium Ferric Gluconate 250 MG in Sodium Chloride 0.9% 100 ML IVPB SCH (14:17)
--- NOTE | 2020-06-19 16:11 | PDOC.HOSPP ---
- Subjective Subjective: Patient was seen examined at bedside. Her rate is better controlled today. She denies any chest pain. She reports that her short of breath improved. However she still appeared to be symptomatic from her anemia. Reports feels lightheadedness especially once he stand up and walk to the bathroom. She was status post 1 unit of blood transfusion, his hemoglobin went from 7.4-8.6 this morning. She denies any history of melena or hematochezia. Stool guaiac was negative. Iron profile indicate that she had iron deficiency anemia. Patient report that she has been taking her iron supplement religiously at home. She denied a history as of colonoscopy or EGD done in the past. She denies any weight loss reason the her TSH within normal limit. Patient is currently is on oral iron supplement. Her LFTs improve as her diarrhea uresis improve. Work-up with PCR was negative. Patient currently is on Lovenox for stroke prophylaxis likely will need to transition to oral anticoagulants when close to discharge. I have updated her sister on the phone. - Objective Vital Signs & Weight: Vital Signs (12 hours) Temp Pulse Resp BP Pulse Ox 06/19/20 15:35 98.6 F 88 17 134/96 H 97 06/19/20 11:28 98.2 F 106 H 15 110/85 98 06/19/20 08:07 99 06/19/20 07:52 97.5 F L 105 H 15 141/104 H 99 Weight Weight 150 lb I&O: 06/18/20 06/19/20 06/20/20 06:59 06:59 06:59 Intake Total 1200 1800 Output Total 3500 2650 Balance -2300 -850 Result Diagrams: 06/19/20 04:18 06/19/20 04:18 Radiology Reviewed by me: Yes EKG Reviewed by me: Yes Hospitalist ROS - Medication Medications: Active Medications Generic Name Dose Route Start Last Admin Trade Name Freq PRN Reason Stop Dose Admin Aspirin 81 mg 06/16/20 09:00 06/19/20 08:13 Aspirin 81 Mg Enteric Coated Tablet PO 81 mg DAILY KENDALL Administration Benzonatate 100 mg 06/15/20 18:12 06/17/20 14:50 Benzonatate 100 Mg Cap PO 100 mg Q6H PRN Administration Cough Carvedilol 12.5 mg 06/18/20 17:00 06/19/20 08:13 Carvedilol 6.25 Mg Tab PO 12.5 mg BID-WM K[facility]ALL Administration Enoxaparin Sodium 80 mg 06/15/20 21:00 06/19/20 08:12 Enoxaparin Sodium 80 Mg/0.8 Ml Syringe SC 80 mg 0900,2100 KENDALL Administration Famotidine 20 mg 06/15/20 21:00 06/19/20 08:13 Famotidine 20 Mg Tab PO 20 mg BID K[facility]ALL Administration Ferrous Sulfate 325 mg 06/17/20 17:00 06/19/20 08:13 Ferrous Sulfate 325 Mg Tab PO 325 mg BID-WM KENDALL Administration Ferric Sodium Gluconate 120 mls @ 60 mls/hr 06/19/20 13:00 06/19/20 14:17 Complex 250 mg/ Sodium IVPB 120 mls Chloride 1300 KENDALL Administration Potassium Chloride 40 meq 06/16/20 17:00 06/19/20 08:12 Potassium Chloride 20 Meq Tab PO 40 meq BID-WM KENDALL Administration Sodium Chloride 10 ml 06/18/20 09:00 06/19/20 08:14 Flush - Normal Saline 10 Ml Syringe IVF 10 ml Q12HR KENDALL Administration - Exam General Appearance: NAD Eye: PERRL ENT: normocephalic atraumatic Neck: supple Heart: irregular Respiratory: CTAB Gastrointestinal: soft Extremities: no cyanosis Skin: normal turgor Neurological: cranial nerve grossly intact Musculoskeletal: normal tone Psychiatric: normal affect, normal behavior, A&O x 3 Hosp A/P - Plan Patient is a pleasant 54 years old -[place] female, who has significant past medical history of hypertension, not on medication, who presented to ED with complaining approximately 1 week history of persistent and progressive dyspnea, and associated with left lower extremity swelling. She was found to have new onset of atrial fib with RVR and CHF exacerbation on admission. Acute on chronic systolic heart failure --Continue current management as per cardiology. Patient is on appropriate heart failure regimen including beta-sarah, ARB, ASA. Diuretics --patient will likely need a life vest, and further ischemic work-up per cardiology Atrial fib with RVR --Rate has improved. Continue beta-sarah, and Lovenox therapeutic dose. Patient had elevated CHADVasc Score, will need senior care AC NSTEMI likely type II --Management as stated above. Patient will likely need a heart cath prior to discharge. We will check her lipid panel. We will hold off on starting her statin therapy until her LFT normalized Elevated LFT - likely due to hepatic congestion --Follow CMP, will check acute hepatic panel in a.m. Iron deficiency anemia --Continue oral iron supplement. We will give her dose of Venofer. Patient will likely need EGD/colonoscopy at outpatient --Stool guaiac was negative KOBE --resolved Tobacco dependent disorder --Counseled Hypokalemia --Corrected.
[2020-06-20 05:01] LABS: Hemoglobin A1c 5.8 % (4.0-6.0)
[2020-06-20 05:22] LABS: ALT (SGPT) 126 U/L (8-55); AST (SGOT) 72 U/L (5-34); Alkaline Phosphatase 117 U/L (40-110); Anion Gap 11 mmol/L (10-20); BUN (Urea Nitrogen) 20 mg/dL (9.8-20.1); Bilirubin, Total 0.9 mg/dL (0.2-1.2); Calc. Creatinine Clearance 76 mL/min (70-130); Carbon Dioxide 30 mmol/L (22-29); Cardiac Risk 3.1 (Less than 4.5); Chloride 102 mmol/L (98-107); Cholesterol 121 mg/dl (< 200 Desired); Estimated GFR-MDRD 79; Globulin 3.1 g/dL (2.4-3.5); Glucose 85 mg/dL (70-105); HDL Cholesterol 39 mg/dL (>60 Neg Risk); LDL Cholesterol, Calculated 71 mg/dL; Magnesium 1.9 mg/dL (1.6-2.6); Potassium 4.3 mmol/L (3.5-5.1); Protein, Total 6.1 g/dL (6.0-8.3); Sodium 139 mmol/L (136-145); Triglycerides 55 mg/dL (Less than 150)
[2020-06-20 05:32] LABS: Anisocytosis MODERATE=16-30 cells (100X) (0-5/hpf); Band 2 % (5-11); Elliptocytes SLIGHT = 2-5 cells (100X) (0-1/hpf); Hemoglobin 8.9 g/dL (12.0-16.0); Hypochromia MODERATE=16-30 cells (100X) (0-5/hpf); Lymphocytes 5 % (21-51); MDiff Complete? YES; Mean Corpuscular HGB CONC 29.3 g/dL (32.0-36.0); Mean Corpuscular Hemoglobin 19.2 pg (27.0-31.0); Mean Corpuscular Volume 65.5 fL (78.0-98.0); Mean Platelet Volume 10.5 fL (7.4-10.4); Microcytosis SLIGHT = 6-15 cells (100X) (0-5/hpf); Monocytes 8 % (0-10); Myelocyte 1 % (0-0); Neutrophil 84 % (42-75); Nucleated RBC 3 % (0); Platelet Count 208 thou/uL (130-400); Platelet Morphology Comment Appears Adequate; Polychromasia SLIGHT = 2-3 cells (100X) (0-2/hpf); RBC Distribution Width 26.6 % (11.5-14.5); Red Blood Cell (RBC) Count 4.62 mill/uL (4.20-5.40); White Blood Cell (WBC) Count 7.9 thou/uL (4.8-10.8)
[2020-06-20 05:42] LABS: HBCM Index 0.13 S/CO (0-0.79); HBSAg Index 0.13 S/CO (0-0.99); Hep A IgM AB Non-Reactive (NonReactive); Hep A IgM S/CO 0.51 S/CO (0-0.79); Hep B Surf Ag Non-Reactive S/CO (NonReactive); Hep C IgG Ab Non-Reactive (NonReactive); Hep C Index 0.17 S/CO (0-0.79); Hepatitis B Core IgM Abs Non-Reactive (NonReactive)
[2020-06-20] MEDS ORDERED: Magnesium 2 GM/50 ML 2 GM in Premix Bag 1 BAG IVPB SCH (06:15)
[2020-06-20] MEDS: Furosemide 40 MG TAB PO SCH (06:37)
[2020-06-20] MEDS: Ferrous Sulfate 325 MG TAB PO SCH ×2 (08:08→16:09)
[2020-06-20] MEDS: Famotidine 20 MG TAB PO SCH ×2 (08:08→20:51)
[2020-06-20] MEDS: Losartan 25 MG TAB PO SCH (08:08)
[2020-06-20] MEDS: Aspirin 81 mg Enteric Coated Tablet PO SCH (08:08)
[2020-06-20] MEDS: Carvedilol 6.25 MG TAB PO SCH ×2 (08:08→16:09)
[2020-06-20] MEDS: Potassium Chloride 20 MEQ TAB PO SCH ×2 (08:09→16:10)
[2020-06-20] MEDS: Enoxaparin Sodium 80 MG/0.8 ML SYRINGE SC SCH ×2 (08:10→20:50)
[2020-06-20] MEDS ORDERED: guaiFENesin ER 600 MG TAB PO SCH (09:30)
--- NOTE | 2020-06-20 09:35 | PDOC.CPN ---
- Subjective Date: 06/19/20 Time: 13:30 Interval history: Patient without complaints. Overall feeling much better. - Review of Systems General: denies: fever/chills, weight/appetite/sleep changes, night sweats, fatigue Respiratory: denies: cough, congestion, shortness of breath, exercise intolerance Cardiovascular: denies: chest pain, palpitation, edema, paroxysmal nocturnal dyspnea, orthopnea Gastrointestinal: denies: nausea, vomiting, diarrhea, constipation, abd pain, GI bleeding Musculoskeletal: denies: pain, tenderness, stiffness, swelling, arthri tis/arthralgias Neurological: denies: numbness, syncope, seizure, weakness - Objective Allergies/Adverse Reactions: Allergies Allergy/AdvReac Type Severity Reaction Status Date / Time No Known Allergies Allergy Verified 06/15/20 17:29 Visit Medications: Current Medications Acetaminophen (Acetaminophen 500 Mg Tab) 1,000 mg PO Q6H PRN PRN Reason: Mild Pain (1-3) Albuterol/Ipratropium (Ipratropium/Albuterol Sulfate 3 Ml Neb) 3 ml NEB [id number] Aspirin (Aspirin 81 Mg Enteric Coated Tablet) 81 mg PO DAILY [facility] Last Admin: 06/20/20 08:08 Dose: 81 mg Documented by: Benzonatate (Benzonatate 100 Mg Cap) 100 mg PO Q6H PRN PRN Reason: Cough Last Admin: 06/17/20 14:50 Dose: 100 mg Documented by: Budesonide (Budesonide 0.5 Mg/2 Ml Neb) 0.5 mg NEB BID-[facility] Carvedilol (Carvedilol 6.25 Mg Tab) 12.5 mg PO BID-[facility] Last Admin: 06/20/20 08:08 Dose: 12.5 mg Documented by: Enoxaparin Sodium (Enoxaparin Sodium 80 Mg/0.8 Ml Syringe) 80 mg SC 0900,2100 [facility] Last Admin: 06/20/20 08:10 Dose: 80 mg Documented by: Famotidine (Famotidine 20 Mg Tab) 20 mg PO BID [facility] Last Admin: 06/20/20 08:08 Dose: 20 mg Documented by: Ferrous Sulfate (Ferrous Sulfate 325 Mg Tab) 325 mg PO BID-[facility] Last Admin: 06/20/20 08:08 Dose: 325 mg Documented by: Furosemide (Furosemide 40 Mg Tab) 40 mg PO DAILY-[facility] Last Admin: 06/20/20 06:37 Dose: 40 mg Documented by: Guaifenesin (Guaifenesin Er 600 Mg Tab) 600 mg PO Q12HR [facility] Guaifenesin (Guaifenesin Er 600 Mg Tab) 600 mg PO NOW [facility] Stop: 06/20/20 12:00 Ferric Sodium Gluconate Complex 250 mg/ Sodium Chloride 120 mls @ 60 mls/hr IVPB 1300 [facility] Last Admin: 06/19/20 14:17 Dose: 120 mls Documented by: Labetalol HCl (Labetalol Hcl 100 Mg/20 Ml Vial) 20 mg SLOW IVP Q4H PRN PRN Reason: SBP > 180 and HR >/= 70 Losartan Potassium (Losartan 25 Mg Tab) 25 mg PO DAILY [facility] Last Admin: 06/20/20 08:08 Dose: 25 mg Documented by: Miscellaneous Medication (Electrolyte Replacement Protoc 1 Each Each) 1 each FS ASDIR [facility] Ondansetron HCl (Ondansetron Odt 4 Mg Tab) 4 mg PO Q6H PRN PRN Reason: Nausea/Vomiting Ondansetron HCl (Ondansetron Pf 4 Mg/2 Ml Vial) 4 mg IVP Q6H PRN PRN Reason: Nausea/Vomiting Potassium Chloride (Potassium Chloride 20 Meq Tab) 40 meq PO BID-[facility] Last Admin: 06/20/20 08:09 Dose: 40 meq Documented by: Sodium Chloride (Flush - Normal Saline 10 Ml Syringe) 10 ml IVF Q12HR [facility] Last Admin: 06/20/20 08:10 Dose: 10 ml Documented by: Sodium Chloride (Flush - Normal Saline 10 Ml Syringe) 10 ml IVF PRN PRN PRN Reason: Saline Flush Vital Signs & Weight: Vital Signs Temp Pulse Resp BP BP BP Pulse Ox 06/20/20 08:03 97.7 F 94 18 144/90 H 94 L 06/20/20 05:00 98.1 F 67 18 122/91 H 90 L 06/20/20 00:00 129/84 Weight 153 lb - Quality Measures CV meds: Beta Akhil: Yes - Physical Exam General: alert & oriented x3, appears well, no apparent distress HEENT: mucus membranes moist Neck: supple neck Cardiac: regular rate Lungs: clear to auscultation, no wheeze, rales, rhonchi Neuro: grossly intact Abdomen: soft Extremities: no cyanosis Skin: clear - Labs Result Diagrams: 06/20/20 04:24 06/20/20 04:24 Troponin/CKMB CK-MB (CK-2) 4.9 ng/mL (0-6.6) 06/15/20 12:04 Troponin I 0.094 ng/mL (< 0.028) H 06/15/20 18:51 - Assessment/Plan Assessment/Plan: 1. Severe Anemia 2. Acute systolic CHF 3. Family history of CAD 4. NSVT 5. AF 6. HTN Plan is for possible LHC prior to discharge with LifeVest. patient has diuresed approximately 20lbs. Will change lasix to po. Add low dose ARB. She gives history of heavy and long menstraul cycles still. May need gynecology exam/work- up prior to angio. Monitor H/H.
[2020-06-20] MEDS: Iron, Sodium Ferric Gluconate 250 MG in Sodium Chloride 0.9% 100 ML IVPB SCH (11:55)
--- NOTE | 2020-06-20 12:05 | PDOC.HOSPP ---
- Subjective Subjective: pt c/o chest congestion. She quit smoking 3 weeks ago. Usually smoked about 1-2 PPD for the last 40 years. no chest pain. LE swelling resolved. - Objective Vital Signs & Weight: Vital Signs (12 hours) Temp Pulse Resp BP BP Pulse Ox 06/20/20 08:03 97.7 F 94 18 144/90 H 94 L 06/20/20 08:02 94 L 06/20/20 05:00 98.1 F 67 18 122/91 H 90 L Weight Weight 153 lb I&O: 06/19/20 06/20/20 06/21/20 06:59 06:59 06:59 Intake Total 1800 1090 Output Total 2650 Balance -850 1090 Result Diagrams: 06/20/20 04:24 06/20/20 04:24 Radiology Reviewed by me: Yes EKG Reviewed by me: Yes Hospitalist ROS - Medication Medications: Active Medications Generic Name Dose Route Start Last Admin Trade Name Freq PRN Reason Stop Dose Admin Aspirin 81 mg 06/16/20 09:00 06/20/20 08:08 Aspirin 81 Mg Enteric Coated Tablet PO 81 mg DAILY [facility] Administration Benzonatate 100 mg 06/15/20 18:12 06/17/20 14:50 Benzonatate 100 Mg Cap PO 100 mg Q6H PRN Administration Cough Carvedilol 12.5 mg 06/18/20 17:00 06/20/20 08:08 Carvedilol 6.25 Mg Tab PO 12.5 mg BID-WM K[facility]ALL Administration Enoxaparin Sodium 80 mg 06/15/20 21:00 06/20/20 08:10 Enoxaparin Sodium 80 Mg/0.8 Ml Syringe SC 80 mg 0900,2100 K[facility]ALL Administration Famotidine 20 mg 06/15/20 21:00 06/20/20 08:08 Famotidine 20 Mg Tab PO 20 mg BID K[facility] Administration Ferrous Sulfate 325 mg 06/17/20 17:00 06/20/20 08:08 Ferrous Sulfate 325 Mg Tab PO 325 mg BID-WM K[facility]ALL Administration Furosemide 40 mg 06/20/20 07:30 06/20/20 06:37 Furosemide 40 Mg Tab PO 40 mg DAILY-AC [facility]ALL Administration Ferric Sodium Gluconate 120 mls @ 60 mls/hr 06/19/20 13:00 06/19/20 14:17 Complex 250 mg/ Sodium IVPB 120 mls Chloride 1300 K[facility]ALL Administration Losartan Potassium 25 mg 06/20/20 09:00 06/20/20 08:08 Losartan 25 Mg Tab PO 25 mg DAILY [facility] Administration Potassium Chloride 40 meq 06/16/20 17:00 06/20/20 08:09 Potassium Chloride 20 Meq Tab PO 40 meq BID-WM KENDALL Administration Sodium Chloride 10 ml 06/18/20 09:00 06/20/20 08:10 Flush - Normal Saline 10 Ml Syringe IVF 10 ml Q12HR KENDALL Administration - Exam General Appearance: NAD Eye: PERRL ENT: normocephalic atraumatic Neck: supple Heart: no murmur, irregular Respiratory: CTAB Gastrointestinal: soft Extremities: no cyanosis, no clubbing, no edema Skin: normal turgor Neurological: cranial nerve grossly intact Musculoskeletal: normal tone Psychiatric: normal affect Hosp A/P - Plan Patient is a pleasant 54 years old -Portuguese female, who has significant past medical history of hypertension, not on medication, who presented to ED with complaining approximately 1 week history of persistent and progressive dyspnea, and associated with left lower extremity swelling. She was found to have new onset of atrial fib with RVR and CHF exacerbation on admission. Acute on chronic systolic heart failure --Continue current management as per cardiology. Patient is on appropriate heart failure regimen including beta-sarah, ARB, ASA. --Diuresed, now euvolemic, transitioned to oral Lasix by cardiology --patient will likely need a life vest, and further ischemic work-up prior to discharge per cardiology Atrial fib with RVR --Rate has improved. Continue beta-sarah, and Lovenox therapeutic dose. Patient had elevated CHADVasc Score, will need rodent exterminator AC NSTEMI likely type II --Management as stated above. Patient will likely need a heart cath prior to discharge. Elevated LFT - likely due to hepatic congestion --Follow CMP, acute hep panel neg Iron deficiency anemia --Continue oral iron supplement. S/p IV Venofer and 1U PRBC x 1. Patient will likely need EGD/colonoscopy at outpatient --Stool guaiac was negative --Hb stable. KOBE --resolved Tobacco dependent disorder --Counseled. Quit smoking about 3 weeks ago. Previously smoked 1-2 PPD x 40 yrs Hypokalemia --Corrected.
--- NOTE | 2020-06-20 13:32 | PDOC.CPN ---
- Subjective Date: 06/20/20 Time: 13:31 Interval history: Patient without new complaints. Hbg up to 8.9 - Review of Systems General: denies: fever/chills, weight/appetite/sleep changes, night sweats, fatigue Respiratory: denies: cough, congestion, shortness of breath, exercise intolerance Cardiovascular: denies: chest pain, palpitation, edema, paroxysmal nocturnal dyspnea, orthopnea Gastrointestinal: denies: nausea, vomiting, diarrhea, constipation, abd pain, GI bleeding Musculoskeletal: denies: pain, tenderness, stiffness, swelling, arthritis/arthralgias Neurological: denies: numbness, syncope, seizure, weakness - Objective Allergies/Adverse Reactions: Allergies Allergy/AdvReac Type Severity Reaction Status Date / Time No Known Allergies Allergy Verified 06/15/20 17:29 Visit Medications: Current Medications Acetaminophen (Acetaminophen 500 Mg Tab) 1,000 mg PO Q6H PRN PRN Reason: Mild Pain (1-3) Last Admin: 06/20/20 12:04 Dose: 1,000 mg Documented by: Albuterol/Ipratropium (Ipratropium/Albuterol Sulfate 3 Ml Neb) 3 ml NEB [id number] SCH Last Admin: 06/20/20 12:54 Dose: 3 ml Documented by: Aspirin (Aspirin 81 Mg Enteric Coated Tablet) 81 mg PO DAILY [facility] Last Admin: 06/20/20 08:08 Dose: 81 mg Documented by: Benzonatate (Benzonatate 100 Mg Cap) 100 mg PO Q6H PRN PRN Reason: Cough Last Admin: 06/17/20 14:50 Dose: 100 mg Documented by: Budesonide (Budesonide 0.5 Mg/2 Ml Neb) 0.5 mg NEB BID-RT [facility] Carvedilol (Carvedilol 6.25 Mg Tab) 12.5 mg PO BID-[facility] Last Admin: 06/20/20 08:08 Dose: 12.5 mg Documented by: Enoxaparin Sodium (Enoxaparin Sodium 80 Mg/0.8 Ml Syringe) 80 mg SC 0900,2100 [facility] Last Admin: 06/20/20 08:10 Dose: 80 mg Documented by: Famotidine (Famotidine 20 Mg Tab) 20 mg PO BID [facility] Last Admin: 06/20/20 08:08 Dose: 20 mg Documented by: Ferrous Sulfate (Ferrous Sulfate 325 Mg Tab) 325 mg PO BID-[facility] Last Admin: 06/20/20 08:08 Dose: 325 mg Documented by: Furosemide (Furosemide 40 Mg Tab) 40 mg PO DAILY-[facility] Last Admin: 06/20/20 06:37 Dose: 40 mg Documented by: Guaifenesin (Guaifenesin Er 600 Mg Tab) 600 mg PO Q12HR [facility] Ferric Sodium Gluconate Complex 250 mg/ Sodium Chloride 120 mls @ 60 mls/hr IVPB 1300 [facility] Last Admin: 06/20/20 11:55 Dose: 120 mls Documented by: Labetalol HCl (Labetalol Hcl 100 Mg/20 Ml Vial) 20 mg SLOW IVP Q4H PRN PRN Reason: SBP > 180 and HR >/= 70 Losartan Potassium (Losartan 25 Mg Tab) 25 mg PO DAILY [facility] Last Admin: 06/20/20 08:08 Dose: 25 mg Documented by: Miscellaneous Medication (Electrolyte Replacement Protoc 1 Each Each) 1 each FS ASDIR [facility] Ondansetron HCl (Ondansetron Odt 4 Mg Tab) 4 mg PO Q6H PRN PRN Reason: Nausea/Vomiting Ondansetron HCl (Ondansetron Pf 4 Mg/2 Ml Vial) 4 mg IVP Q6H PRN PRN Reason: Nausea/Vomiting Potassium Chloride (Potassium Chloride 20 Meq Tab) 40 meq PO BID-[facility] Last Admin: 06/20/20 08:09 Dose: 40 meq Documented by: Sodium Chloride (Flush - Normal Saline 10 Ml Syringe) 10 ml IVF Q12HR [facility] Last Admin: 06/20/20 08:10 Dose: 10 ml Documented by: Sodium Chloride (Flush - Normal Saline 10 Ml Syringe) 10 ml IVF PRN PRN PRN Reason: Saline Flush Vital Signs & Weight: Vital Signs Temp Pulse Pulse Pulse Resp BP BP 06/20/20 12:54 82 16 06/20/20 12:31 85 93 114/80 117/79 06/20/20 08:03 97.7 F 94 18 06/20/20 08:02 06/20/20 05:00 98.1 F 67 18 BP BP Pulse Ox Pulse Ox Pulse Ox 06/20/20 12:54 97 06/20/20 12:31 100 93 L 06/20/20 08:03 144/90 H 94 L 06/20/20 08:02 94 L 10/11/20 05:00 122/91 H 90 L Weight 153 lb - Quality Measures CV meds: Beta Akhil: Yes - Physical Exam General: alert & oriented x3, appears well, no apparent distress HEENT: mucus membranes moist Neck: supple neck Cardiac: regular rate and rhythm Lungs: no wheeze, rales, rhonchi Neuro: grossly intact Abdomen: soft Extremities: no edema Skin: clear - Labs Result Diagrams: 06/20/20 04:24 06/20/20 04:24 Troponin/CKMB CK-MB (CK-2) 4.9 ng/mL (0-6.6) 06/15/20 12:04 Troponin I 0.094 ng/mL (< 0.028) H 06/15/20 18:51 - Assessment/Plan Assessment/Plan: 1. Severe Anemia 2. Acute systolic CHF 3. Family history of CAD 4. NSVT 5. AF 6. HTN Hgb slowly improving. Will discuss timing of LHC with Dr. Hackett. No changes to meds.
[2020-06-20] MEDS: Budesonide 0.5 MG/2 ML NEB NEB SCH (19:34)
[2020-06-20] MEDS ORDERED: Communication Order-Pharmacy FS SCH (20:15)
[2020-06-20] MEDS: guaiFENesin ER 600 MG TAB PO SCH (20:52)
[2020-06-21] MEDS: Budesonide 0.5 MG/2 ML NEB NEB SCH ×2 (05:12→18:16)
[2020-06-21 05:41] LABS: ALT (SGPT) 116 U/L (8-55); AST (SGOT) 76 U/L (5-34); Albumin 3.1 g/dL (3.5-5.0); Alkaline Phosphatase 117 U/L (40-110); Anion Gap 13 mmol/L (10-20); BUN (Urea Nitrogen) 20 mg/dL (9.8-20.1); Calc. Creatinine Clearance 78 mL/min (70-130); Calcium 8.4 mg/dL (7.8-10.44); Carbon Dioxide 27 mmol/L (22-29); Chloride 104 mmol/L (98-107); Estimated GFR-MDRD 84; Globulin 3.1 g/dL (2.4-3.5); Glucose 88 mg/dL (70-105); Potassium 4.7 mmol/L (3.5-5.1); Protein, Total 6.2 g/dL (6.0-8.3); Sodium 139 mmol/L (136-145)
[2020-06-21 06:19] LABS: Anisocytosis MODERATE=16-30 cells (100X) (0-5/hpf); Band 13 % (5-11); Elliptocytes SLIGHT = 2-5 cells (100X) (0-1/hpf); Hemoglobin 8.9 g/dL (12.0-16.0); Hypochromia MODERATE=16-30 cells (100X) (0-5/hpf); Lymphocytes 17 % (21-51); MDiff Complete? YES; Mean Corpuscular HGB CONC 29.6 g/dL (32.0-36.0); Mean Corpuscular Hemoglobin 19.5 pg (27.0-31.0); Mean Platelet Volume 9.2 fL (7.4-10.4); Monocytes 4 % (0-10); Myelocyte 1 % (0-0); Neutrophil 65 % (42-75); Nucleated RBC 1 % (0); Platelet Count 162 thou/uL (130-400); Platelet Morphology Comment Appears Adequate; Polychromasia SLIGHT = 2-3 cells (100X) (0-2/hpf); Red Blood Cell (RBC) Count 4.56 mill/uL (4.20-5.40); White Blood Cell (WBC) Count 9.4 thou/uL (4.8-10.8)
[2020-06-21] MEDS: Carvedilol 6.25 MG TAB PO SCH ×2 (08:39→16:29)
[2020-06-21] MEDS: Losartan 25 MG TAB PO SCH (08:40)
[2020-06-21] MEDS ORDERED: Nitroglycerin 100MG/250ML BOT 0 ML ONE (08:54)
[2020-06-21] MEDS ORDERED: Heparin 10,000 UNITS/ 10 ML VIAL ONE (08:54)
[2020-06-21] MEDS ORDERED: Lidocaine 1% (PF) 30 ML VIAL ONE (08:54)
[2020-06-21] MEDS ORDERED: Verapamil 5 MG/2 ML VIAL ONE (08:54)
[2020-06-21] MEDS ORDERED: Nitroglycerin 100MG/250ML BOT 250 ML ONE (08:55)
[2020-06-21] MEDS ORDERED: Iopamidol 370 76% 100 ML VIAL ONE (08:57)
[2020-06-21] MEDS ORDERED: Midazolam HCl 2 mg/2 ml Vial ONE (09:36)
[2020-06-21] MEDS ORDERED: Sodium Chloride 0.9% 200 ML IV PRN (10:18)
[2020-06-21] MEDS ORDERED: Acetaminophen/Codeine 30-300mg Tablet PO PRN ×2 (10:18)
[2020-06-21] MEDS ORDERED: Nitroglycerin 0.4 MG TAB (25 Tab Bottle) SL PRN (10:18)
[2020-06-21] MEDS: guaiFENesin ER 600 MG TAB PO SCH ×2 (11:08→21:37)
[2020-06-21] MEDS: Potassium Chloride 20 MEQ TAB PO SCH ×2 (11:08→16:29)
[2020-06-21] MEDS: Furosemide 40 MG TAB PO SCH (11:08)
[2020-06-21] MEDS: Famotidine 20 MG TAB PO SCH ×2 (11:08→21:36)
[2020-06-21] MEDS: Aspirin 81 mg Enteric Coated Tablet PO SCH (11:08)
[2020-06-21] MEDS: Ferrous Sulfate 325 MG TAB PO SCH ×2 (11:08→16:29)
--- NOTE | 2020-06-21 11:54 | PDOC.HOSPP ---
- Subjective Subjective: Patient was seen examined at bedside. Patient underwent left heart cath today. Final report is pending. Patient also admits that she also use recreational drugs. She denies any chest pain. - Objective Vital Signs & Weight: Vital Signs (12 hours) Temp Pulse Resp BP BP Pulse Ox 06/21/20 11:38 98 F 93 16 127/83 99 06/21/20 07:44 97.8 F 85 16 125/98 H 98 06/21/20 05:12 85 16 96 06/21/20 05:11 84 19 95 06/21/20 04:11 97.7 F 105 H 18 130/91 H 96 06/20/20 23:57 97.8 F 117 H 18 127/86 99 Weight Weight 146 lb 12.8 oz I&O: 06/20/20 06/21/20 06/22/20 06:59 06:59 06:59 Intake Total 1090 1660 Output Total 300 Balance 1090 1360 Result Diagrams: 06/21/20 04:30 06/21/20 04:30 Hospitalist ROS - Medication Medications: Active Medications Generic Name Dose Route Start Last Admin Trade Name Freq PRN Reason Stop Dose Admin Acetaminophen 1,000 mg 06/15/20 18:12 06/20/20 12:04 Acetaminophen 500 Mg Tab PO 1,000 mg Q6H PRN Administration Mild Pain (1-3) Albuterol/Ipratropium 3 ml 06/20/20 13:00 06/21/20 05:11 Ipratropium/Albuterol Sulfate 3 Ml Neb NEB 3 ml [id number] [facility] Administration Aspirin 81 mg 06/16/20 09:00 06/21/20 11:08 Aspirin 81 Mg Enteric Coated Tablet PO 81 mg DAILY [facility] Administration Benzonatate 100 mg 06/15/20 18:12 06/17/20 14:50 Benzonatate 100 Mg Cap PO 100 mg Q6H PRN Administration Cough Budesonide 0.5 mg 06/20/20 18:30 06/21/20 05:12 Budesonide 0.5 Mg/2 Ml Neb NEB 0.5 mg BID-RT [facility] Administration Carvedilol 12.5 mg 06/18/20 17:00 06/21/20 08:39 Carvedilol 6.25 Mg Tab PO 12.5 mg BID-WM [facility] Administration Famotidine 20 mg 06/15/20 21:00 06/21/20 11:08 Famotidine 20 Mg Tab PO 20 mg BID [facility] Administration Ferrous Sulfate 325 mg 06/17/20 17:00 06/21/20 11:08 Ferrous Sulfate 325 Mg Tab PO 325 mg BID-WM [facility] Administration Furosemide 40 mg 06/20/20 07:30 06/21/20 11:08 Furosemide 40 Mg Tab PO 40 mg DAILY-AC [facility] Administration Guaifenesin 600 mg 06/20/20 21:00 06/21/20 11:08 Guaifenesin Er 600 Mg Tab PO 600 mg Q12HR [facility] Administration Ferric Sodium Gluconate 120 mls @ 60 mls/hr 06/19/20 13:00 06/20/20 11:55 Complex 250 mg/ Sodium IVPB 120 mls Chloride 1300 [facility] Administration Losartan Potassium 25 mg 06/20/20 09:00 06/21/20 08:40 Losartan 25 Mg Tab PO 25 mg DAILY [facility] Administration Potassium Chloride 40 meq 06/16/20 17:00 06/21/20 11:08 Potassium Chloride 20 Meq Tab PO 40 meq BID-WM [facility] Administration Sodium Chloride 10 ml 06/18/20 09:00 06/21/20 08:40 Flush - Normal Saline 10 Ml Syringe IVF 10 ml Q12HR [facility] Administration - Exam General Appearance: NAD Eye: PERRL ENT: normocephalic atraumatic Neck: supple Heart: RRR Respiratory: CTAB Gastrointestinal: soft Extremities: no cyanosis Skin: normal turgor Neurological: cranial nerve grossly intact Musculoskeletal: normal tone Psychiatric: normal affect, normal behavior, A&O x 3 Hosp A/P - Plan Patient is a pleasant 54 years old -[place] female, who has significant past medical history of hypertension, not on medication, who presented to ED with complaining approximately 1 week history of persistent and progressive dyspnea, and associated with left lower extremity swelling. She was found to have new onset of atrial fib with RVR and CHF exacerbation on admission. Acute on chronic systolic heart failure EF ~ 25% --s/p LHC ?nonischemic - report pending --cont guideline directed therapy for HF --patient will likely need a life vest upon discharge --check UDS - pt admitted of using recreational drugs. Counseled Atrial fib with RVR --Rate has improved. Continue beta-sarah, and Lovenox therapeutic dose. Patient had elevated CHADVasc Score, will need prison AC NSTEMI likely type II --Management as stated above. Elevated LFT - likely due to hepatic congestion --Follow CMP, acute hep panel neg Iron deficiency anemia --Continue oral iron supplement. S/p IV Venofer and 1U PRBC x 1. Patient will likely need EGD/colonoscopy at outpatient --Stool guaiac was negative --Hb stable. KOBE --resolved Tobacco dependent disorder --Counseled. Quit smoking about 3 weeks ago. Previously smoked 1-2 PPD x 40 yrs Hypokalemia --Corrected. Drug Abuse --check UDS, counseled
[2020-06-21] MEDS: Iron, Sodium Ferric Gluconate 250 MG in Sodium Chloride 0.9% 100 ML IVPB SCH (16:30)
[2020-06-21 17:08] LABS: Amphetamine Not Detected (NotDetected); Barbiturates Screen Not Detected (NotDetected); Benzodiazepine Screen Not Detected (NotDetected); Cocaine Metabolite Screen Not Detected (NotDetected); Medtox Control Line Valid? VALID (VALID); Medtox Reader # READER 4; Methadone Not Detected (NotDetected); Methamphetamine Not Detected (NotDetected); Opiate Screen Not Detected (NotDetected); Oxycodone Screen Not Detected (NotDetected); Phencyclidine (PCP) Not Detected (NotDetected); THC/Cannabinoid Screen Not Detected (NotDetected); Tricyclic Screen Not Detected (NotDetected)
[2020-06-21] MEDS: Apixaban 5 MG TAB PO SCH (21:36)
[2020-06-22 05:21] LABS: ALT (SGPT) 108 U/L (8-55); AST (SGOT) 68 U/L (5-34); Albumin 3.1 g/dL (3.5-5.0); Alkaline Phosphatase 108 U/L (40-110); Anion Gap 12 mmol/L (10-20); BUN (Urea Nitrogen) 23 mg/dL (9.8-20.1); Bilirubin, Total 0.8 mg/dL (0.2-1.2); Calc. Creatinine Clearance 68 mL/min (70-130); Calcium 8.3 mg/dL (7.8-10.44); Carbon Dioxide 25 mmol/L (22-29); Chloride 106 mmol/L (98-107); Estimated GFR-MDRD 72; Globulin 3.1 g/dL (2.4-3.5); Glucose 102 mg/dL (70-105); Potassium 4.9 mmol/L (3.5-5.1); Protein, Total 6.2 g/dL (6.0-8.3); Sodium 138 mmol/L (136-145)
[2020-06-22 05:30] LABS: #Basophils 0.1 thou/uL (0.0-0.2); #Lymphocytes 1.2 thou/uL (1.20-3.40); #Neutrophils 7.5 thou/uL (1.40-6.50); %Basophils 0.7 % (0.0-1.0); %Eosinophils 0.4 % (0.0-10.0); %Monocytes 10.6 % (0.0-10.0); %Neutrophils 76.3 % (42.0-75.0); Anisocytosis MODERATE=16-30 cells (100X) (0-5/hpf); Elliptocytes SLIGHT = 2-5 cells (100X) (0-1/hpf); Hemoglobin 8.6 g/dL (12.0-16.0); Hypochromia MODERATE=16-30 cells (100X) (0-5/hpf); MDiff Complete? YES; Mean Corpuscular HGB CONC 28.7 g/dL (32.0-36.0); Mean Corpuscular Hemoglobin 19.6 pg (27.0-31.0); Mean Corpuscular Volume 68.1 fL (78.0-98.0); Mean Platelet Volume 8.4 fL (7.4-10.4); Microcytosis SLIGHT = 6-15 cells (100X) (0-5/hpf); Platelet Count 175 thou/uL (130-400); Poikilocytosis SLIGHT = 6-15 cells (100X) (0-5/hpf); RBC Distribution Width 31.5 % (11.5-14.5); Red Blood Cell (RBC) Count 4.39 mill/uL (4.20-5.40); Target Cells SLIGHT = 2-5 cells (100X) (0-1/hpf); Tear Drops SLIGHT = 2-5 cells (100X) (0-1/hpf); White Blood Cell (WBC) Count 9.8 thou/uL (4.8-10.8)
[2020-06-22] MEDS: Budesonide 0.5 MG/2 ML NEB NEB SCH ×2 (06:59→19:50)
[2020-06-22] MEDS: Carvedilol 6.25 MG TAB PO SCH ×2 (09:12→16:49)
[2020-06-22] MEDS: Furosemide 40 MG TAB PO SCH (09:12)
[2020-06-22] MEDS: Aspirin 81 mg Enteric Coated Tablet PO SCH (09:13)
[2020-06-22] MEDS: Apixaban 5 MG TAB PO SCH ×2 (09:13→21:31)
[2020-06-22] MEDS: Potassium Chloride 20 MEQ TAB PO SCH ×2 (09:13→16:49)
[2020-06-22] MEDS: Ferrous Sulfate 325 MG TAB PO SCH ×2 (09:14→16:49)
[2020-06-22] MEDS: Losartan 25 MG TAB PO SCH (09:15)
[2020-06-22] MEDS: guaiFENesin ER 600 MG TAB PO SCH ×2 (09:15→21:30)
[2020-06-22] MEDS: Famotidine 20 MG TAB PO SCH ×2 (09:19→21:30)
[2020-06-22 12:30] LABS: Hemoglobin 8.9 g/dL (12.0-16.0); Platelet Count 171 thou/uL (130-400)
--- NOTE | 2020-06-22 13:18 | PDOC.HOSPP ---
- Subjective Subjective: pt is doing better. Feeling slightly dizzy when able ambulate to the bathroom. Hb stable. Discussed with Dr. Hackett, likely home tomorrow or next days. - Objective Vital Signs & Weight: Vital Signs (12 hours) Temp Pulse Pulse Pulse Resp BP BP 06/22/20 11:19 97.5 F L 92 17 06/22/20 08:24 128 H 104 H 135/105 H 135/94 H 06/22/20 08:00 06/22/20 07:27 97.2 F L 96 14 06/22/20 06:59 105 H 18 06/22/20 03:15 98.0 F 97 17 BP Pulse Ox 06/22/20 11:19 132/89 100 06/22/20 08:24 06/22/20 08:00 100 06/22/20 07:27 135/94 H 100 06/22/20 06:59 100 06/22/20 03:15 119/95 H 100 Weight Weight 144 lb 3.2 oz I&O: 06/21/20 06/22/20 06/23/20 06:59 06:59 06:59 Intake Total 1660 500 Output Total 300 1080 Balance 1360 -580 Result Diagrams: 06/22/20 12:13 06/22/20 12:13 Radiology Reviewed by me: Yes EKG Reviewed by me: Yes Hospitalist ROS - Medication Medications: Active Medications Generic Name Dose Route Start Last Admin Trade Name Freq PRN Reason Stop Dose Admin Acetaminophen 1,000 mg 06/15/20 18:12 06/20/20 12:04 Acetaminophen 500 Mg Tab PO 1,000 mg Q6H PRN Administration Mild Pain (1-3) Albuterol/Ipratropium 3 ml 06/20/20 13:00 06/22/20 06:59 Ipratropium/Albuterol Sulfate 3 Ml Neb NEB 3 ml [id number] [facility] Administration Apixaban 5 mg 06/21/20 21:00 06/22/20 09:13 Apixaban 5 Mg Tab PO 5 mg BID [facility] Administration Aspirin 81 mg 06/16/20 09:00 06/22/20 09:13 Aspirin 81 Mg Enteric Coated Tablet PO 81 mg DAILY [facility] Administration Benzonatate 100 mg 06/15/20 18:12 06/17/20 14:50 Benzonatate 100 Mg Cap PO 100 mg Q6H PRN Administration Cough Budesonide 0.5 mg 06/20/20 18:30 06/22/20 06:59 Budesonide 0.5 Mg/2 Ml Neb NEB 0.5 mg BID-RT [facility] Administration Carvedilol 12.5 mg 06/18/20 17:00 06/22/20 09:12 Carvedilol 6.25 Mg Tab PO 12.5 mg BID-WM [facility] Administration Famotidine 20 mg 06/15/20 21:00 06/22/20 09:19 Famotidine 20 Mg Tab PO 20 mg BID [facility] Administration Ferrous Sulfate 325 mg 06/17/20 17:00 06/22/20 09:14 Ferrous Sulfate 325 Mg Tab PO 325 mg BID-WM [facility] Administration Furosemide 40 mg 06/20/20 07:30 06/22/20 09:12 Furosemide 40 Mg Tab PO 40 mg DAILY-AC [facility] Administration Guaifenesin 600 mg 06/20/20 21:00 06/22/20 09:15 Guaifenesin Er 600 Mg Tab PO 600 mg Q12HR [facility] Administration Ferric Sodium Gluconate 120 mls @ 60 mls/hr 06/19/20 13:00 06/21/20 16:30 Complex 250 mg/ Sodium IVPB 120 mls Chloride 1300 [facility] Administration Losartan Potassium 25 mg 06/20/20 09:00 06/22/20 09:15 Losartan 25 Mg Tab PO 25 mg DAILY [facility] Administration Potassium Chloride 40 meq 06/16/20 17:00 06/22/20 09:13 Potassium Chloride 20 Meq Tab PO 40 meq BID-WM [facility] Administration Sodium Chloride 10 ml 06/18/20 09:00 06/22/20 09:15 Flush - Normal Saline 10 Ml Syringe IVF 10 ml Q12HR [facility] Administration - Exam General Appearance: NAD Eye: PERRL ENT: normocephalic atraumatic Neck: supple Heart: irregular Respiratory: CTAB, no wheezes Gastrointestinal: soft, non-tender Extremities: no cyanosis Skin: normal turgor Neurological: cranial nerve grossly intact Musculoskeletal: normal tone Psychiatric: normal affect, normal behavior, A&O x 3 Hosp A/P - Plan Patient is a pleasant 54 years old -[place] female, who has significant past medical history of hypertension, not on medication, who presented to ED with complaining approximately 1 week history of persistent and progressive dyspnea, and associated with left lower extremity swelling. She was found to have new onset of atrial fib with RVR and CHF exacerbation on admission. Acute on chronic systolic heart failure EF ~ 25% --s/p [facility] nonischemic - report pending --cont guideline directed therapy for HF --patient will likely need a life vest upon discharge --UDS negative. --cont current mgt, home when OK with Dr. Hackett Atrial fib with RVR --Rate has improved. Continue beta-sarah, and transitioned to Eliquis. Patient had elevated [id number] Score. NSTEMI likely type II --Management as stated above. Elevated LFT - likely due to hepatic congestion. Improved --Follow CMP, acute hep panel neg Iron deficiency anemia --Continue oral iron supplement. S/p IV Venofer and 1U PRBC x 1. Patient will likely need EGD/colonoscopy at outpatient --Stool guaiac was negative --Hb stable. KOBE --resolved Tobacco dependent disorder --Counseled. Quit smoking about 3 weeks ago. Previously smoked 1-2 PPD x 40 yrs Hypokalemia --Corrected. Drug Abuse --UDS negative, counseled
[2020-06-22] MEDS: Iron, Sodium Ferric Gluconate 250 MG in Sodium Chloride 0.9% 100 ML IVPB SCH (16:51)
[2020-06-23] MEDS: Budesonide 0.5 MG/2 ML NEB NEB SCH ×2 (06:51→18:33)
[2020-06-23] MEDS: guaiFENesin ER 600 MG TAB PO SCH ×2 (09:01→21:18)
[2020-06-23] MEDS: Ferrous Sulfate 325 MG TAB PO SCH ×2 (09:01→17:18)
[2020-06-23] MEDS: Carvedilol 6.25 MG TAB PO SCH ×2 (09:01→17:18)
[2020-06-23] MEDS: Famotidine 20 MG TAB PO SCH ×2 (09:01→21:19)
[2020-06-23] MEDS: Apixaban 5 MG TAB PO SCH ×2 (09:01→21:18)
[2020-06-23] MEDS: Furosemide 40 MG TAB PO SCH (09:01)
[2020-06-23] MEDS: Potassium Chloride 20 MEQ TAB PO SCH ×2 (09:02→17:18)
[2020-06-23] MEDS: Aspirin 81 mg Enteric Coated Tablet PO SCH (09:03)
--- NOTE | 2020-06-23 13:49 | PDOC.HOSPP ---
- Subjective Subjective: pending life vest. no further vag bleeding reported. Hb stable. no cp/sob - Objective Vital Signs & Weight: Vital Signs (12 hours) Temp Pulse Pulse Pulse Resp BP BP 06/23/20 11:55 98.3 F 92 16 06/23/20 11:15 103 H 104 H 114/84 112/80 06/23/20 07:46 06/23/20 07:42 98.3 F 102 H 17 06/23/20 04:00 97.7 F 95 16 BP BP BP Pulse Ox 06/23/20 11:55 114/84 100 06/23/20 11:15 06/23/20 07:46 97 06/23/20 07:42 131/106 H 97 06/23/20 04:00 140/90 97 Weight Weight 143 lb 3.2 oz I&O: 06/22/20 06/23/20 06/24/20 06:59 06:59 06:59 Intake Total 500 1529 615 Output Total 1080 900 745 Balance -580 629 -130 Result Diagrams: 06/22/20 12:13 06/22/20 12:13 Radiology Reviewed by me: Yes EKG Reviewed by me: Yes Hospitalist ROS - Medication Medications: Active Medications Generic Name Dose Route Start Last Admin Trade Name Freq PRN Reason Stop Dose Admin Acetaminophen 1,000 mg 06/15/20 18:12 06/20/20 12:04 Acetaminophen 500 Mg Tab PO 1,000 mg Q6H PRN Administration Mild Pain (1-3) Albuterol/Ipratropium 3 ml 06/20/20 13:00 06/23/20 12:23 Ipratropium/Albuterol Sulfate 3 Ml Neb NEB Not Given [id number] [facility] Apixaban 5 mg 06/21/20 21:00 06/23/20 09:01 Apixaban 5 Mg Tab PO 5 mg BID [facility] Administration Aspirin 81 mg 06/16/20 09:00 06/23/20 09:03 Aspirin 81 Mg Enteric Coated Tablet PO 81 mg DAILY [facility] Administration Benzonatate 100 mg 06/15/20 18:12 06/17/20 14:50 Benzonatate 100 Mg Cap PO 100 mg Q6H PRN Administration Cough Budesonide 0.5 mg 06/20/20 18:30 06/23/20 06:51 Budesonide 0.5 Mg/2 Ml Neb NEB Not Given BID-RT [facility] Carvedilol 12.5 mg 06/18/20 17:00 06/23/20 09:01 Carvedilol 6.25 Mg Tab PO 12.5 mg BID-WM [facility] Administration Famotidine 20 mg 06/15/20 21:00 06/23/20 09:01 Famotidine 20 Mg Tab PO 20 mg BID [facility] Administration Ferrous Sulfate 325 mg 06/17/20 17:00 06/23/20 09:01 Ferrous Sulfate 325 Mg Tab PO 325 mg BID-WM [facility] Administration Furosemide 40 mg 06/20/20 07:30 06/23/20 09:01 Furosemide 40 Mg Tab PO 40 mg DAILY-AC [facility] Administration Guaifenesin 600 mg 06/20/20 21:00 06/23/20 09:01 Guaifenesin Er 600 Mg Tab PO 600 mg Q12HR [facility] Administration Potassium Chloride 40 meq 06/16/20 17:00 06/23/20 09:02 Potassium Chloride 20 Meq Tab PO 40 meq BID-WM [facility] Administration Sacubitril/Valsartan 1 tab 06/22/20 21:00 06/23/20 09:02 Sacubitril 24mg/Valsartan 26mg Tab PO 1 tab BID [facility] Administration Sodium Chloride 10 ml 06/18/20 09:00 06/23/20 09:03 Flush - Normal Saline 10 Ml Syringe IVF 10 ml Q12HR [facility] Administration - Exam General Appearance: NAD Eye: PERRL ENT: normocephalic atraumatic Neck: supple Heart: irregular Respiratory: CTAB Gastrointestinal: soft Extremities: no cyanosis, no clubbing, no edema Skin: normal turgor Neurological: cranial nerve grossly intact Musculoskeletal: normal tone Psychiatric: normal affect, normal behavior, A&O x 3 Hosp A/P - Plan Patient is a pleasant 54 years old -[place] female, who has significant past medical history of hypertension, not on medication, who presented to ED with complaining approximately 1 week history of persistent and progressive dyspnea, and associated with left lower extremity swelling. She was found to have new onset of atrial fib with RVR and CHF exacerbation on admission. Acute on chronic systolic heart failure EF ~ 25% --s/p LHC nonischemic - report pending --cont guideline directed therapy for HF, pt started on Entresto by cardiology --Pending LifeVest Atrial fib with RVR --Rate has improved. Continue beta-sarah, and transitioned to Eliquis. Patient had elevated [id number] Score. NSTEMI likely type II --Management as stated above. Elevated LFT - likely due to hepatic congestion. Improved --Follow CMP, acute hep panel neg Iron deficiency anemia --Continue oral iron supplement. S/p IV Venofer and 1U PRBC x 1. Patient will likely need EGD/colonoscopy at outpatient --Stool guaiac was negative --Hb stable. Post-menopausal vaginal bleed --Hb stable. cont iron supplement --check Transvaginal US. Consider SAAS ARCHITECT eval if bleeding recurs KOBE --resolved Tobacco dependent disorder --Counseled. Quit smoking about 3 weeks ago. Previously smoked 1-2 PPD x 40 yrs Hypokalemia --Corrected. Drug Abuse --UDS negative, counseled
--- NOTE | 2020-06-23 16:05 | ULT ---
Pelvic ultrasound: 06/23/2020 HISTORY: Postmenopausal vaginal bleeding TECHNIQUE: Multiplanar grayscale sonographic imaging of the pelvis obtained with transabdominal and e ndovaginal imaging. The ovaries are assessed with Doppler interrogation including color flow and spectral analysis FINDINGS: Small volume free fluid noted in the pelvic cul-de-sac. The uterus measures 6.4 x 4.5 x 5.0 cm. Multiple heterogeneously hypoechoic lesions are seen within t he uterus most consistent with uterine fibroid disease. This includes a submucosal lesion measuring up to 5 cm suggesting a submucosal fibroid. The left ovary could not be visualized on this exam. Endometrial thickness is approximately 3 mm, wit hin normal limits. Small volume fluid noted in the endometrial canal. Right ovary measures 4.1 x 2.8 x 2.1 cm and demonstrates internal blood flow. Immediately adjacent to and/or emanating from the right ovary is a complex cystic lesion measuring 7 x 5 x 8 cm. This is suspicious for a cystic ovarian neoplasm on the right. Alternative consideration would include a hydr osalpinx. IMPRESSION: 1. Complex cystic lesion in the right adnexa measuring up to 8 cm. Cystic ovarian neoplasm is the stacey genesis concern. Recommend pelvic MRI and IMPLEMENTATION ADVISOR consultation. 2. Uterine fibroid disease, including a submucosal 5 cm lesion. CODE T
[2020-06-24 05:29] LABS: #Basophils 0.1 thou/uL (0.0-0.2); #Eosinphils 0.1 thou/uL (0.0-0.7); #Lymphocytes 1.3 thou/uL (1.20-3.40); #Monocytes 0.9 thou/uL (0.11-0.59); #Neutrophils 5.9 thou/uL (1.40-6.50); %Basophils 0.8 % (0.0-1.0); %Eosinophils 0.9 % (0.0-10.0); %Lymphocytes 15.4 % (21.0-51.0); %Monocytes 11.5 % (0.0-10.0); %Neutrophils 71.3 % (42.0-75.0); Hemoglobin 9.1 g/dL (12.0-16.0); Mean Corpuscular HGB CONC 29.1 g/dL (32.0-36.0); Mean Corpuscular Hemoglobin 20.6 pg (27.0-31.0); Mean Corpuscular Volume 70.7 fL (78.0-98.0); Mean Platelet Volume 9.5 fL (7.4-10.4); Platelet Count 140 thou/uL (130-400); RBC Distribution Width 35.7 % (11.5-14.5); White Blood Cell (WBC) Count 8.2 thou/uL (4.8-10.8)
[2020-06-24 05:39] LABS: Anion Gap 10 mmol/L (10-20); BUN (Urea Nitrogen) 22 mg/dL (9.8-20.1); Calc. Creatinine Clearance 69 mL/min (70-130); Carbon Dioxide 25 mmol/L (22-29); Chloride 111 mmol/L (98-107); Estimated GFR-MDRD 76; Glucose 86 mg/dL (70-105); Potassium 4.1 mmol/L (3.5-5.1); Sodium 142 mmol/L (136-145)
[2020-06-24] MEDS: Budesonide 0.5 MG/2 ML NEB NEB SCH ×2 (06:35→19:01)
--- NOTE | 2020-06-24 08:20 | PDOC.HOSPP ---
- Subjective Subjective: no acute event overnight. rate is better controlled. Pending LifeVest. Transvag US reviewed. No vag bleeding reported. - Objective Vital Signs & Weight: Vital Signs (12 hours) Temp Pulse Resp BP BP Pulse Ox 06/24/20 08:00 98.2 F 92 18 133/100 H 99 06/24/20 06:35 99 06/24/20 04:02 98.3 F 97 16 142/93 H 99 06/23/20 20:30 99 Weight Weight 141 lb 9.6 oz I&O: 06/23/20 06/24/20 06/25/20 06:59 06:59 06:59 Intake Total 1529 1465 Output Total 900 745 Balance 629 720 Result Diagrams: 06/24/20 04:38 06/24/20 04:38 Radiology Reviewed by me: Yes EKG Reviewed by me: Yes Hospitalist ROS - Medication Medications: Active Medications Generic Name Dose Route Start Last Admin Trade Name Freq PRN Reason Stop Dose Admin Acetaminophen 1,000 mg 06/15/20 18:12 06/20/20 12:04 Acetaminophen 500 Mg Tab PO 1,000 mg Q6H PRN Administration Mild Pain (1-3) Albuterol/Ipratropium 3 ml 06/20/20 13:00 06/24/20 06:35 Ipratropium/Albuterol Sulfate 3 Ml Neb NEB Not Given [id number] [facility] Apixaban 5 mg 06/21/20 21:00 06/23/20 21:18 Apixaban 5 Mg Tab PO 5 mg BID [facility] Administration Aspirin 81 mg 06/16/20 09:00 06/23/20 09:03 Aspirin 81 Mg Enteric Coated Tablet PO 81 mg DAILY [facility] Administration Benzonatate 100 mg 06/15/20 18:12 06/17/20 14:50 Benzonatate 100 Mg Cap PO 100 mg Q6H PRN Administration Cough Budesonide 0.5 mg 06/20/20 18:30 06/24/20 06:35 Budesonide 0.5 Mg/2 Ml Neb NEB Not Given BID-RT [facility] Carvedilol 12.5 mg 06/18/20 17:00 06/23/20 17:18 Carvedilol 6.25 Mg Tab PO 12.5 mg BID-WM [facility] Administration Famotidine 20 mg 06/15/20 21:00 06/23/20 21:19 Famotidine 20 Mg Tab PO 20 mg BID [facility] Administration Ferrous Sulfate 325 mg 06/17/20 17:00 06/23/20 17:18 Ferrous Sulfate 325 Mg Tab PO 325 mg BID-WM [facility] Administration Furosemide 40 mg 06/20/20 07:30 06/23/20 09:01 Furosemide 40 Mg Tab PO 40 mg DAILY-AC [facility] Administration Guaifenesin 600 mg 06/20/20 21:00 06/23/20 21:18 Guaifenesin Er 600 Mg Tab PO 600 mg Q12HR [facility] Administration Potassium Chloride 40 meq 06/16/20 17:00 06/23/20 17:18 Potassium Chloride 20 Meq Tab PO 40 meq BID-WM [facility] Administration Sacubitril/Valsartan 1 tab 06/22/20 21:00 06/23/20 21:19 Sacubitril 24mg/Valsartan 26mg Tab PO 1 tab BID [facility] Administration Sodium Chloride 10 ml 06/18/20 09:00 06/23/20 21:20 Flush - Normal Saline 10 Ml Syringe IVF 10 ml Q12HR [facility] Administration - Exam General Appearance: NAD Eye: PERRL ENT: normocephalic atraumatic Neck: supple Heart: irregular Respiratory: CTAB Gastrointestinal: soft Extremities: no cyanosis, no clubbing, no edema Skin: normal turgor Neurological: cranial nerve grossly intact Musculoskeletal: normal tone Psychiatric: normal affect, normal behavior, A&O x 3 Hosp A/P - Plan Patient is a pleasant 54 years old -[place] female, who has significant past medical history of hypertension, not on medication, who presented to ED with complaining approximately 1 week history of persistent and progressive dyspnea, and associated with left lower extremity swelling. She was found to have new onset of atrial fib with RVR and CHF exacerbation on admission. Post-menopausal vaginal bleed --Hb stable. cont iron supplement --Transvag US showed 8 cm complex right adnexal mass concerning for possible ovarian ca --check CA-125 --IT SOLUTIONS ARCHITECT consult. Acute on chronic systolic heart failure EF ~ 25% --s/p LHC nonischemic - report pending --cont guideline directed therapy for HF, pt started on Entresto by cardiology --Pending LifeVest Atrial fib with RVR --Rate has improved. Continue beta-sarah, and transitioned to Eliquis. Patient had elevated [id number] Score. NSTEMI likely type II --Management as stated above. Elevated LFT - likely due to hepatic congestion. Improved --Follow CMP, acute hep panel neg Iron deficiency anemia --Continue oral iron supplement. S/p IV Venofer and 1U PRBC x 1. Patient will likely need EGD/colonoscopy at outpatient --Stool guaiac was negative --Hb stable. KOBE --resolved Tobacco dependent disorder --Counseled. Quit smoking about 3 weeks ago. Previously smoked 1-2 PPD x 40 yrs Hypokalemia --Corrected. Drug Abuse --UDS negative, counseled
[2020-06-24] MEDS: Furosemide 40 MG TAB PO SCH (09:52)
[2020-06-24] MEDS: Potassium Chloride 20 MEQ TAB PO SCH ×2 (09:52→16:42)
[2020-06-24] MEDS: Aspirin 81 mg Enteric Coated Tablet PO SCH (09:53)
[2020-06-24] MEDS: Famotidine 20 MG TAB PO SCH ×2 (09:53→21:49)
[2020-06-24] MEDS: Carvedilol 6.25 MG TAB PO SCH ×2 (09:53→16:42)
[2020-06-24] MEDS: Ferrous Sulfate 325 MG TAB PO SCH ×2 (09:54→16:42)
[2020-06-24] MEDS: guaiFENesin ER 600 MG TAB PO SCH ×2 (09:54→21:49)
[2020-06-24] MEDS: Apixaban 5 MG TAB PO SCH ×2 (09:54→21:49)
[2020-06-24 12:12] VITALS: BMI 21.5
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
[2020-06-25] MEDS: Budesonide 0.5 MG/2 ML NEB NEB SCH (07:00)
[2020-06-25] MEDS: Furosemide 40 MG TAB PO SCH (08:30)
[2020-06-25] MEDS: Aspirin 81 mg Enteric Coated Tablet PO SCH (08:30)
[2020-06-25] MEDS: Apixaban 5 MG TAB PO SCH (08:30)
[2020-06-25] MEDS: Potassium Chloride 20 MEQ TAB PO SCH ×2 (08:30→16:42)
[2020-06-25] MEDS: Famotidine 20 MG TAB PO SCH (08:30)
[2020-06-25] MEDS: Ferrous Sulfate 325 MG TAB PO SCH ×2 (08:30→16:42)
[2020-06-25] MEDS: guaiFENesin ER 600 MG TAB PO SCH (08:30)
[2020-06-25] MEDS: Carvedilol 6.25 MG TAB PO SCH ×2 (08:30→16:41)
[2020-06-25 09:00] LABS: Hemoglobin 9.8 g/dL (12.0-16.0); Platelet Count 164 thou/uL (130-400)
[2020-06-25 13:38] VITALS: TEMP 98.1
--- NOTE | 2020-06-25 14:08 | PDOC.HOSPP ---
- Subjective Subjective: no acute event, waiting for lifevest - Objective Vital Signs & Weight: Vital Signs (12 hours) Temp Pulse Pulse Pulse Resp BP BP 06/25/20 13:20 133 H 94 109/75 06/25/20 12:00 98.1 F 94 19 06/25/20 08:30 127/84 06/25/20 07:43 98.5 F 83 16 06/25/20 04:00 98.3 F 61 20 BP BP BP Pulse Ox 06/25/20 13:20 105/86 06/25/20 12:00 109/75 95 06/25/20 08:30 06/25/20 07:43 127/84 99 06/25/20 04:00 134/87 100 Weight Admit Weight 141 lb 9.6 oz Weight 141 lb 1.6 oz I&O: 06/24/20 06/25/20 06/26/20 06:59 06:59 06:59 Intake Total 1695 1440 350 Output Total 745 Balance 950 1440 350 Result Diagrams: 06/25/20 08:39 06/25/20 08:39 Radiology Reviewed by me: Yes EKG Reviewed by me: Yes Hospitalist ROS - Medication Medications: Active Medications Generic Name Dose Route Start Last Admin Trade Name Freq PRN Reason Stop Dose Admin Acetaminophen 1,000 mg 06/15/20 18:12 06/20/20 12:04 Acetaminophen 500 Mg Tab PO 1,000 mg Q6H PRN Administration Mild Pain (1-3) Albuterol/Ipratropium 3 ml 06/20/20 13:00 06/25/20 12:30 Ipratropium/Albuterol Sulfate 3 Ml Neb NEB Not Given [id number] KENDALL Apixaban 5 mg 06/21/20 21:00 06/25/20 08:30 Apixaban 5 Mg Tab PO 5 mg BID KENDALL Administration Aspirin 81 mg 06/16/20 09:00 06/25/20 08:30 Aspirin 81 Mg Enteric Coated Tablet PO 81 mg DAILY KENDALL Administration Benzonatate 100 mg 06/15/20 18:12 06/17/20 14:50 Benzonatate 100 Mg Cap PO 100 mg Q6H PRN Administration Cough Budesonide 0.5 mg 06/20/20 18:30 06/25/20 07:00 Budesonide 0.5 Mg/2 Ml Neb NEB Not Given BID-RT KENDALL Carvedilol 12.5 mg 06/18/20 17:00 06/25/20 08:30 Carvedilol 6.25 Mg Tab PO 12.5 mg BID-WM KENDALL Administration Famotidine 20 mg 06/15/20 21:00 06/25/20 08:30 Famotidine 20 Mg Tab PO 20 mg BID KENDALL Administration Ferrous Sulfate 325 mg 06/17/20 17:00 06/25/20 08:30 Ferrous Sulfate 325 Mg Tab PO 325 mg BID-WM KENDALL Administration Furosemide 40 mg 06/20/20 07:30 06/25/20 08:30 Furosemide 40 Mg Tab PO 40 mg DAILY-AC KENDALL Administration Guaifenesin 600 mg 06/20/20 21:00 06/25/20 08:30 Guaifenesin Er 600 Mg Tab PO 600 mg Q12HR KENDALL Administration Potassium Chloride 40 meq 06/16/20 17:00 06/25/20 08:30 Potassium Chloride 20 Meq Tab PO 40 meq BID-WM KENDALL Administration Sacubitril/Valsartan 1 tab 06/22/20 21:00 06/25/20 08:30 Sacubitril 24mg/Valsartan 26mg Tab PO 1 tab BID KENDALL Administration Sodium Chloride 10 ml 06/18/20 09:00 06/25/20 08:31 Flush - Normal Saline 10 Ml Syringe IVF Not Given Q12HR KENDALL - Exam General Appearance: NAD Eye: PERRL ENT: normocephalic atraumatic Neck: supple Heart: RRR Respiratory: CTAB Gastrointestinal: soft Extremities: no cyanosis Skin: normal turgor Neurological: cranial nerve grossly intact Musculoskeletal: normal tone Psychiatric: normal affect, normal behavior, A&O x 3 Hosp A/P - Plan Patient is a pleasant 54 years old -[place] female, who has significant past medical history of hypertension, not on medication, who presented to ED with complaining approximately 1 week history of persistent and progressive dyspnea, and associated with left lower extremity swelling. She was found to have new onset of atrial fib with RVR and CHF exacerbation on admission. Acute on chronic systolic heart failure EF ~ 25% --s/p LHC nonischemic - report pending --cont guideline directed therapy for HF, pt started on Entresto by cardiology --Pending LifeVest. discharge medications sent to [facility] - so far no recurrence --pending LifeVest to go home Atrial fib with RVR --Rate has improved. Continue beta-sarah, and transitioned to Eliquis. Patient had elevated [id number] Score. NSTEMI likely type II --Management as stated above. Elevated LFT - likely due to hepatic congestion. Improved --Follow CMP, acute hep panel neg Iron deficiency anemia --Continue oral iron supplement. S/p IV Venofer and 1U PRBC x 1. Patient will likely need EGD/colonoscopy at outpatient --Stool guaiac was negative --Hb stable. Vaginal bleed - currently resolved --Hb stable. cont iron supplement --Transvag US showed 8 cm complex right adnexal mass concerning for possible ovarian ca --CA 125 slightly elevated. --Appreciate CORRECTIONAL THERAPY TEACHER input, follow up as outpatient. KOBE --resolved Tobacco dependent disorder --Counseled. Quit smoking about 3 weeks ago. Previously smoked 1-2 PPD x 40 yrs Hypokalemia --Corrected. Drug Abuse --UDS negative, counseled
[2020-06-25 16:44] VITALS: BP 127/84
--- NOTE | 2020-06-29 16:20 | DIS ---
DATE OF ADMISSION: 06/15/2020 DATE OF DISCHARGE: 06/25/2020 PRIMARY CARE PHYSICIAN: Estefanía Mcmillan NP DISCHARGE DIAGNOSES: 1. Acute on chronic systolic heart failure with ejection fraction around 25%. 2. Nonsustained ventricular tachycardia. 3. Atrial fibrillation with RVR. 4. [id number] myocardial infarction, likely type 2. 5. Elevated LFT due to hepatic congestion, improved. 6. Iron-deficiency anemia. 7. Vaginal bleed, resolved. Ultrasound positive for 8-cm complex right adnexal mass, concern for possible ovarian cancer, status post eval by SAT INSTRUCTOR. 8. Acute kidney injury. 9. Tobacco dependence disorder. 10. Hypokalemia, corrected. 11. History of drug abuse. CONSULTATIONS: Cardiology, Dr. Hackett. PROCEDURES: Left heart catheterization; per Cardiology, it was nonischemic cardiomyopathy. 2D echo showed EF of 25% to 30% with mild LVH, dilated IVC, consistent with volume overload. LABORATORY DATA: WBC 8.2, hemoglobin 9.8, hematocrit 35.2, and platelets 164. Chemistry; sodium 142, potassium 4.2, chloride is 111, carbon dioxide 25, BUN 22, creatinine 0.92, AST 68, ALT 108. CA-125 of 55.2. TSH 1.78. IMAGING STUDIES: Chest x-ray, right basilar atelectasis and small amount of right pleural effusion. Lower extremity venous Doppler, no evidence of deep venous thrombosis. Transvaginal ultrasound, complex cystic lesions in the initial mass measuring up to 8 cm. Cystic ovarian neoplasm is a primary concern. Recommend pelvic MRI and SAT INSTRUCTOR consultation. including submucosal 5 cm lesion. HISTORY OF PRESENT ILLNESS AND BRIEF HOSPITAL COURSE: The patient is a pleasant 54-year-old female, who had significant past medical history of hypertension, currently not on medication; history of tobacco dependent disorder; remote history of alcohol abuse; and recreational drug use; who presented to the ED with complaining of approximately 1-week history of progressively dyspnea, associated with left lower extremity swelling over the past couple of weeks. The patient was found to have volume overload. Her troponins were elevated. She was subsequently admitted to hospitalist for further IV diuresis. The patient was monitored on tele. She was also found to have atrial fibrillation with RVR, and a couple of occurrence of nonsustained ventricular tachycardia, with the longest one was 9 beats. Cardiology was consulted. The patient was seen by Dr. Hackett. Subsequently, underwent left heart catheterization after the patient was euvolemic. She tolerated the procedure well. No evidence of ischemia. The patient was placed on appropriate guideline-directed therapy for heart failure including beta sarah, Entresto, she was also started on anticoagulant with Eliquis. The patient tolerated well. Given the fact that her arrhythmia and nonsustained ventricular tachycardia, Dr. Hackett recommended a LifeVest, which has been fitted prior to discharge. It should be noted that the patient also found to have microcytic anemia, further workup appeared to be iron-deficiency anemia. Her hemoglobin went down to as low as 7.2. Given her arrhythmia and cardiac history, the patient was given a unit of blood transfusion as well as a few doses of Venofer. The patient appeared to be tolerated well. Her hemoglobin remained stable above 9. She also reported some intermittent vaginal bleed. For that reason, a transvaginal ultrasound was obtained. The results are noted above. Her CA-125 also elevated. SAT INSTRUCTOR consultation was obtained. The patient was seen by Dr. Elana Pineda, who evaluated the patient and thought it is more consistent with hydrosalpinx. She recommended to follow up as outpatient with Dr. Zabala, referral was sent upon discharge. Plan of care discussed with the patient, she verbalized understanding and agreeable with the plan. The patient was also counseled with low-salt diet and avoid recreational drug use as well as alcohol and tobacco. At this time, the patient is stable to discharge from cardiac standpoint. She has her LifeVest prior to discharge. She will need to follow up with her PCP in 1 to 2 weeks to repeat the labs, including CBC and electrolytes to make sure it remains stable. She will also follow with Dr. Hackett, [facility] for ongoing management of her heart failure. She will also need to follow up with [facility] IN[facility]CTOR as outpatient as mentioned above. DISPOSITION: The patient is stable to discharge home. ACTIVITY: As tolerated. DIET: 2 g sodium diet. FOLLOWUP CARE: PCP in 1 to 2 weeks, Heart Failure, and SAT INSTRUCTOR as mentioned above. PHYSICAL EXAMINATION: VITAL SIGNS: Temperature is 98.1, pulse 94, blood pressure is 127/84, she is saturating 95% on room air, and blood pressure 105/86. GENERAL APPEARANCE: The patient appears to be comfortable. She is not in acute distress. HEENT: Normocephalic, atraumatic. Mucous membranes moist. NECK: Supple. No lymphadenopathy. No JVD. CARDIOVASCULAR: Irregularly irregular, no murmurs. PULMONOLOGY: Clear to auscultation bilaterally. ABDOMEN: Soft, nontender, nondistended. Positive bowel sounds. MUSCULOSKELETAL: No joint pain or tenderness. No lower extremity edema. SKIN: Intact. NEUROLOGIC: Cranial nerves 2 through 12 are grossly intact. No focal weakness. PSYCHIATRIC: The patient is alert and oriented x3 with normal affect. DISCHARGE MEDICATIONS: manager policy was consulted, medications were provided . 1. Carvedilol 12.5 mg b.i.d. 2. Aspirin 81 mg p.o. daily. 3. Eliquis 5 mg b.i.d. 4. Entresto 24/26 mg 1 tablet b.i.d. 5. Ferrous sulfate 325 mg b.i.d. 6. Potassium supplement 20 mEq p.o. daily. 7. Lasix 40 mg p.o. daily. DISCHARGE TIME SPENT: 40 minutes. Thank you for allowing us to participate in this patient's care. Job ID: [id number]
== END 2020-06-25 16:57 | disposition home or self-care (01) | DRG 280 ==
LOC: ERS 11:40 → 2SE 14:55
PROVIDERS: ADMIT Family Medicine; ATTEND Family Medicine
PROC: 30233N1 Transfusion of Nonautologous Red Blood Cells into Peripheral Vein, Percutaneous Approach (ICD-10-PCS; 2020-06-18)
PROC: 4A023N7 Measurement of Cardiac Sampling and Pressure, Left Heart, Percutaneous Approach (ICD-10-PCS; principal; 2020-06-21)
PROC: B2111ZZ Fluoroscopy of Multiple Coronary Arteries using Low Osmolar Contrast (ICD-10-PCS; 2020-06-21)
PROC: B2151ZZ Fluoroscopy of Left Heart using Low Osmolar Contrast (ICD-10-PCS; 2020-06-21)
DX: I48.91 Unspecified atrial fibrillation (principal); I21.A1 Myocardial infarction type 2; I50.23 Acute on chronic systolic (congestive) heart failure; N17.9 Acute kidney failure, unspecified; I11.0 Hypertensive heart disease with heart failure; I47.2 Ventricular tachycardia; K76.1 Chronic passive congestion of liver; D50.9 Iron deficiency anemia, unspecified; E87.6 Hypokalemia; Z20.828 Contact with and (suspected) exposure to other viral communicable diseases; I34.0 Nonrheumatic mitral (valve) insufficiency; I42.8 Other cardiomyopathies; D25.9 Leiomyoma of uterus, unspecified; F19.10 Other psychoactive substance abuse, uncomplicated; N70.11 Chronic salpingitis; N93.9 Abnormal uterine and vaginal bleeding, unspecified; Z87.891 Personal history of nicotine dependence; Z79.899 Other long term (current) drug therapy; Z79.82 Long term (current) use of aspirin
CPT/HCPCS: 36415; 36430; 71045; 76856; 80048; 80053; 80061; 80074; 80306; 82274; 82553; 82565; 82728; 83036; 83540; 83735; 83880; 84100; 84443; 84484; 85014; 85018; 85025; 85046; 85049; 85060; 86304; 86850; 86900; 86901; 87635; 93005; 93306; 93454; 93798; 93970; 94640; 94760; 96365; 96366; 96372; 96376; 97139; 99152; 99153; J1160; J1644; J1650; J1940; J2001; J2250; J2916; J3475; J3480; J3490; J7050; J7620; J7626; P9016; Q9967; U0003

== ENCOUNTER 2023-05-02 14:39 | Outpatient (CLI) | payer MEDICARE | END 2023-05-02 14:40 | disposition home or self-care (01) | LOC: BICMAMMO 14:39 | PROVIDERS: ATTEND Nurse Practitioner Family | DX: Z12.31 Encounter for screening mammogram for malignant neoplasm of breast (principal); Z80.3 Family history of malignant neoplasm of breast | CPT/HCPCS: 77063; 77067 ==